=== PATIENT | female | born 1965 | race Caucasian/White ===

== ENCOUNTER → 2023-05-20 19:36 | Outpatient (REF) | payer OTHER, SELFPAY | LOC: MRI 3T 19:36 | PROVIDERS: ATTENDING PHYSICIAN Internal Medicine Hematology & Oncology; FAMILY PHYSICIAN Family Medicine | DX: C69.40 Malignant neoplasm of unspecified ciliary body (principal); R93.2 Abnormal findings on diagnostic imaging of liver and biliary tract; C78.7 Secondary malignant neoplasm of liver and intrahepatic bile duct | CPT/HCPCS: 70553; A9575 ==

== ENCOUNTER → 2023-05-23 13:00 | Outpatient (REF) | payer OTHER, SELFPAY | LOC: RADI 13:00 | PROVIDERS: ATTENDING PHYSICIAN Internal Medicine Hematology & Oncology | DX: C78.7 Secondary malignant neoplasm of liver and intrahepatic bile duct (principal); C69.90 Malignant neoplasm of unspecified site of unspecified eye ==

== ENCOUNTER 2023-07-02 11:29 | Observation (INO) | payer OTHER, SELFPAY ==
[2023-07-02] VITALS (20 sets, daily range): BP systolic 78–133; BP diastolic 59–96
[2023-07-02 07:37] LABS: % Basophils 1.6 % (0-2); % Eosinophils 2.9 % (0-6); % Immature Granulocytes 0.4 % (0-0.5); % Lymphocytes 29.4 % (20.5-51.1); % Monocytes 8.6 % (1.7-9.3); % Neutrophils 57.1 % (42.2-75.2); Absolute Basophils 0.1 10^3/uL (0-0.2); Absolute Eosinophils 0.2 10^3/uL (0-0.7); Absolute Lymphocytes 2.1 10^3/uL (1.2-3.4); Absolute Monocytes 0.6 10^3/uL (0.1-0.6); Hematocrit 40.3 % (37.0-47.0); Hemoglobin 13.4 g/dL (12.0-16.0); Mean Corp Hgb Conc. 33.3 g/dL (33.0-37.0); Mean Corpuscular Hgb 29.8 pg (27.0-31.0); Mean Corpuscular Volume 89.6 fL (81.0-99.0); Mean Platelet Volume 10.7 fL (7.4-10.4); Nucleated Red Blood Cells % 0 %; Platelet Count 319 10^3/uL (130-400); Red Cell Dist. Width 13.5 % (11.5-14.5)
[2023-07-02 08:05] LABS: ALT (SGPT) 16 U/L (0-35); AST (SGOT) 21 U/L (14-36); Albumin 4.5 g/dl (3.5-5.0); Alkaline Phosphatase 73 U/L (38-126); Blood Urea Nitrogen 12 mg/dl (7-17); Calcium 9.2 mg/dl (8.4-10.2); Carbon Dioxide 24 mmol/L (22-30); Chloride 109 mmol/L (98-107); Glucose 86 mg/dl (70-99); LDH 193 U/L (120-246); Potassium 3.9 mmol/L (3.5-5.1); Sodium 140 mmol/L (135-145); Total Bilirubin 0.8 mg/dl (0.2-1.3); Total Protein 7.3 g/dl (6.3-8.2); eGFR > 60.00
[2023-07-02 08:08] LABS: INR 1.01; PT 13.3 Sec (11.4-14.6)
[2023-07-02 08:09] LABS: APTT 30.1 Sec (23.4-35.0)
[2023-07-02] MEDS: SUBLIMAZE 25 MCG IV ×2 (11:57→15:03)
[2023-07-02] MEDS: NSS 1000 IV (12:30)
--- NOTE | 2023-07-02 17:49 | W.PN.UPDATE ---
Update Note
Progress Note Update
Doing well post CT guided percutaneous microwave ablation of hepatic mass. Earlier mild nausea, R abd, back pain all of which have improved. Taking PO. Dressing RUQ with minimal spotting. Anticipate d/c 07/02.
--- NOTE | 2023-07-02 18:04 | PTCARENOTE ---
P. received from PACU at 1700. Pt. arrived in bed. Pt. oriented to unit and nursing shift assessment. Pt. as given menu and call light. Will continue to monitor
[2023-07-02] MEDS: NSS IV (20:02)
[2023-07-02] MEDS: TYLENOL 650 MG PO (23:01)
[2023-07-03] MEDS: NSS IV (00:33)
[2023-07-03 03:45] VITALS: BP 138/73
[2023-07-03 05:32] LABS: Hematocrit 35.8 % (37.0-47.0); Mean Corp Hgb Conc. 33.5 g/dL (33.0-37.0); Mean Corpuscular Hgb 29.3 pg (27.0-31.0); Mean Corpuscular Volume 87.5 fL (81.0-99.0); Mean Platelet Volume 10.5 fL (7.4-10.4); Platelet Count 298 10^3/uL (130-400); Red Blood Cell Count 4.09 10^6/uL (4.20-5.40); Red Cell Dist. Width 13.4 % (11.5-14.5); White Blood Cell Count 11.2 10^3/uL (4.8-10.8)
[2023-07-03 05:59] LABS: ALT (SGPT) 130 U/L (0-35); AST (SGOT) 137 U/L (14-36); Albumin 3.8 g/dl (3.5-5.0); Alkaline Phosphatase 71 U/L (38-126); Blood Urea Nitrogen 11 mg/dl (7-17); Carbon Dioxide 27 mmol/L (22-30); Chloride 105 mmol/L (98-107); Glucose 106 mg/dl (70-99); Potassium 3.9 mmol/L (3.5-5.1); Sodium 139 mmol/L (135-145); Total Bilirubin 0.4 mg/dl (0.2-1.3); Total Protein 6.4 g/dl (6.3-8.2); eGFR > 60.00
[2023-07-03 07:00] VITALS: BP 118/56
[2023-07-03] MEDS: TAPAZOLE 10 MG PO (08:07)
--- NOTE | 2023-07-03 08:38 | W.PN.GENERIC ---
Assessment / Plan
-
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 She underwent MW ablation in IR yesterday. She has recovered well. She is voiding without difficulty and tolerating POs.
Can take Tylenol or Motrin for pain
Plan to discharge today
Recommend follow up with oncologist in 2-4 weeks
Recommend Follow up MRI in 4 months
Physician Progress Note
Subjective
58 yo female with metastatic melanoma of the left eye. She has a liver lesion and underwent MW ablation of this lesion yesterday in IR. She is feeling well today. She denies nausea, vomiting, abdominal pain, fever or chills. She is tolerating
POs. She is voiding spontasneously.
Objective
Vital Signs
Temp Pulse Resp BP Pulse Ox
97.9 F 73 18 118/56 98
07/03/23 07:00 07/03/23 07:00 07/03/23 07:00 07/03/23 07:00 07/03/23 07:00
Lab Results
07/03/23 05:20
07/03/23 05:20
58 yo female who is AA&O x 3 in NAD. Color is good. Skin is warm and dry. Color is good. Heart regular. Normal respiratory effort. Dressing removed. Site CDI. Abdomen is soft and nontender. No hematoma. No hepatomegaly. No calf tenderness
== END 2023-07-03 10:47 | disposition home or self-care (01) ==
LOC: 3 WEST ACU 11:29
PROVIDERS: Physician Assistant; ADMITTING PHYSICIAN Radiology Vascular & Interventional Radiology; FAMILY PHYSICIAN Family Medicine; REFERRING PHYSICIAN Internal Medicine Hematology & Oncology
DX: C78.7 Secondary malignant neoplasm of liver and intrahepatic bile duct (principal); Z85.820 Personal history of malignant melanoma of skin
CPT/HCPCS: 36415; 47382; 77013; 80053; 83615; 85025; 85027; 85610; 85730; G0378

== ENCOUNTER → 2023-08-25 12:47 | Outpatient (REF) | payer OTHER, SELFPAY | LOC: WDC 12:47 | PROVIDERS: ATTENDING PHYSICIAN Obstetrics & Gynecology Obstetrics; FAMILY PHYSICIAN Family Medicine | DX: Z12.31 Encounter for screening mammogram for malignant neoplasm of breast (principal) | CPT/HCPCS: 77063; 77067 ==

== ENCOUNTER → 2023-09-17 07:56 | Outpatient (REF) | payer OTHER, SELFPAY | LOC: PET 07:56 | PROVIDERS: ATTENDING PHYSICIAN Internal Medicine Hematology & Oncology | DX: C69.42 Malignant neoplasm of left ciliary body (principal) | CPT/HCPCS: 78816; A9552 ==

== ENCOUNTER → 2024-01-07 17:34 | Outpatient (REF) | payer OTHER, SELFPAY | LOC: MRI 3T 17:34 | PROVIDERS: ATTENDING PHYSICIAN Internal Medicine Hematology & Oncology; FAMILY PHYSICIAN Family Medicine | DX: C69.40 Malignant neoplasm of unspecified ciliary body (principal); C69.42 Malignant neoplasm of left ciliary body; R93.2 Abnormal findings on diagnostic imaging of liver and biliary tract; C78.7 Secondary malignant neoplasm of liver and intrahepatic bile duct; E03.2 Hypothyroidism due to medicaments and other exogenous substances | CPT/HCPCS: 74183; A9575 ==

== ENCOUNTER → 2024-02-23 16:40 | Outpatient (REF) | payer OTHER, SELFPAY | LOC: MRI 3T 16:40 | PROVIDERS: ATTENDING PHYSICIAN Internal Medicine Hematology & Oncology; FAMILY PHYSICIAN Family Medicine | DX: C69.32 Malignant neoplasm of left choroid (principal) | CPT/HCPCS: 74183; A9581 ==

== ENCOUNTER 2024-03-08 07:04 | Outpatient (REF) | payer OTHER, SELFPAY ==
[2024-03-08] VITALS (17 sets, daily range): BP systolic 74–145; BP diastolic 59–118
[2024-03-08 07:33] LABS: % Basophils 1.7 % (0-2); % Eosinophils 4.2 % (0-6); % Immature Granulocytes 0.5 % (0-0.5); % Lymphocytes 20.4 % (20.5-51.1); % Monocytes 10.5 % (1.7-9.3); % Neutrophils 62.7 % (42.2-75.2); Absolute Basophils 0.1 10^3/uL (0-0.2); Absolute Eosinophils 0.3 10^3/uL (0-0.7); Absolute Lymphocytes 1.3 10^3/uL (1.2-3.4); Absolute Monocytes 0.7 10^3/uL (0.1-0.6); Absolute Neutrophils 4.1 10^3/uL (1.4-6.5); Hematocrit 39.6 % (37.0-47.0); Hemoglobin 13.3 g/dL (12.0-16.0); Mean Corp Hgb Conc. 33.6 g/dL (33.0-37.0); Mean Corpuscular Volume 89.4 fL (81.0-99.0); Mean Platelet Volume 10.6 fL (7.4-10.4); Nucleated Red Blood Cells % 0 %; Platelet Count 311 10^3/uL (130-400); Red Blood Cell Count 4.43 10^6/uL (4.20-5.40); Red Cell Dist. Width 12.7 % (11.5-14.5); White Blood Cell Count 6.5 10^3/uL (4.8-10.8)
[2024-03-08 07:43] LABS: ALT (SGPT) 16 U/L (0-35); AST (SGOT) 20 U/L (14-36); Albumin 4.4 g/dl (3.5-5.0); Alkaline Phosphatase 80 U/L (38-126); Blood Urea Nitrogen 18 mg/dl (7-17); Calcium 9.1 mg/dl (8.4-10.2); Carbon Dioxide 26 mmol/L (22-30); Chloride 106 mmol/L (98-107); Direct Bilirubin 0.1 mg/dl (0.0-0.4); Estimated Creatinine Clearance 94 ml/min; Glucose 99 mg/dl (70-99); LDH 174 U/L (120-246); Potassium 3.8 mmol/L (3.5-5.1); Sodium 143 mmol/L (135-145); Total Bilirubin 0.6 mg/dl (0.2-1.3); Total Protein 7.3 g/dl (6.3-8.2); eGFR > 60.00
[2024-03-08 07:55] LABS: INR 1.07; PT 14.2 Sec (11.4-14.6)
[2024-03-08 07:56] LABS: APTT 31.5 Sec (23.4-35.0)
[2024-03-08] MEDS: ANCEF 10 IV (09:05)
[2024-03-08] MEDS: DILAUDID 0.5 MG IV ×3 (11:04→17:08)
[2024-03-08] MEDS: DILAUDID 0.25 MG IV (11:35)
[2024-03-08] MEDS: NSS 1000 IV (13:54)
[2024-03-08] MEDS: TYLENOL 650 MG PO (17:10)
--- NOTE | 2024-03-08 19:00 | W.PN.UPDATE ---
Update Note
Progress Note Update
Doing well post percutaneous microwave ablation of hepatic mass x2. Has appetite, has ambulated in hallway, pain at site controlled by rx. Dry dressing in place, no hematoma. Anticipate DC in AM.
[2024-03-08] MEDS: NSS IV (19:33)
[2024-03-08] MEDS: ROXICODONE 5 MG PO (22:00)
[2024-03-09] MEDS: TYLENOL 650 MG PO ×2 (00:11→09:49)
[2024-03-09 00:26] VITALS: BP 113/70
[2024-03-09] MEDS: ROXICODONE 5 MG PO (04:56)
[2024-03-09 07:55] VITALS: BP 121/83
--- NOTE | 2024-03-09 08:55 | W.PN.GENERIC ---
Assessment / Plan
-
This is a 59 yo female with metastatic melanoma and liver mets. She underwent MWA yesterday. She had some pain but is feeling better today.
Continue all home meds
Will prescribe oxycodone for pain
Stable for discharge today
Physician Progress Note
Subjective
Radha is a very pleasant 59-year-old woman with a past medical history significant for hypothyroidism and ocular melanoma with hepatic metastases. She previously underwent microwave ablation of a left hepatic lesion on July 02, 2023. She recovered
well from that procedure and was started on Keytruda July 30, 2023. On routine surveillance imaging, she was found progression of disease in the right lobe of her liver. She underwent microwave ablation yesterday. She reports the pain is
improving. She is tolerating POs.
She denies fever, chills, headache, chest pain, palpitations, shortness of breath, abdominal pain, nausea, vomiting, unintentional weight loss, dark tarry stool, hematemesis, jaundice, itching, rash or change in appetite.
PMH: Uveal melanoma, hypothyroidism, hepatic metastases.
PSH: Cataract surgery, appendectomy, oophorectomy, hysterectomy.
Social History: Patient is a former smoker. She rarely drinks alcohol.
Allergies: Sulfa and shellfish.
Current Medications: Synthroid 100 mcg, vitamin B complex, vitamin D3, and empower vitamins.
Objective
Vital Signs
Temp Pulse Resp BP Pulse Ox
97.9 F 72 17 121/83 95
03/09/24 07:55 03/09/24 07:55 03/09/24 07:55 03/09/24 07:55 03/09/24 07:55
Lab Results
03/08/24 07:25
03/08/24 07:25
Physical examination: This is a well-nourished, well-developed 59-year-old female who is awake, alert and oriented in no acute distress. Her color is good without jaundice. Her sclerae are anicteric. Her neck is supple. Her heart is regular. Her
lungs are CTA. Her abdomen is soft and nontender with bowel sounds. Her dresing is CDI. No hematoma. No calf pain or LE edema
--- NOTE | 2024-03-09 10:36 | CM ---
Patient seen at bedside. Outpatient status
IA completed
Lives at home alone in a 2 story townhouse, 2 steps to enter, flight to second floor
PLOF: Independent, ambulates without assistive device
Denies DME
Denies hh in the past, denies rehab in past
Denies housing/food/transportation/utilities insecurties
PCP: Jesus Marroquin
Pharmacy: [facility]
PLAN: Home, no needs
friend to transport home
== END 2024-03-09 11:05 | disposition home or self-care (01) ==
LOC: RADI 07:04
PROVIDERS: ATTENDING PHYSICIAN Radiology Vascular & Interventional Radiology; FAMILY PHYSICIAN Family Medicine; REFERRING PHYSICIAN Internal Medicine Hematology & Oncology
DX: C78.7 Secondary malignant neoplasm of liver and intrahepatic bile duct (principal); C69.42 Malignant neoplasm of left ciliary body; D68.8 Other specified coagulation defects
CPT/HCPCS: 36415; 47382; 77013; 80053; 82248; 83615; 85025; 85610; 85730

== ENCOUNTER → 2024-07-01 16:39 | Outpatient (REF) | payer OTHER, SELFPAY | LOC: MRI 3T 16:39 | PROVIDERS: ATTENDING PHYSICIAN Internal Medicine Hematology & Oncology; FAMILY PHYSICIAN Radiology Vascular & Interventional Radiology | DX: C69.40 Malignant neoplasm of unspecified ciliary body (principal); C69.42 Malignant neoplasm of left ciliary body; R93.2 Abnormal findings on diagnostic imaging of liver and biliary tract; C78.7 Secondary malignant neoplasm of liver and intrahepatic bile duct; E03.2 Hypothyroidism due to medicaments and other exogenous substances | CPT/HCPCS: 74183; A9581 ==

== ENCOUNTER 2024-07-12 10:28 | Emergency (ER) | payer OTHER, SELFPAY ==
[2024-07-12] VITALS (9 sets, daily range): BP systolic 95–109; BP diastolic 50–76; PULSE 88–95; BMI 27.6
[2024-07-12] MEDS: NSS 1000 IV (11:27)
[2024-07-12 11:33] LABS: % Basophils 0.9 % (0-2); % Eosinophils 3.1 % (0-6); % Immature Granulocytes 0.5 % (0-0.5); % Lymphocytes 14.1 % (20.5-51.1); % Monocytes 13.3 % (1.7-9.3); % Neutrophils 68.1 % (42.2-75.2); Absolute Basophils 0.1 10^3/uL (0-0.2); Absolute Eosinophils 0.3 10^3/uL (0-0.7); Absolute Immature Granulocytes 0.1 10^3/uL (0-0.05); Absolute Lymphocytes 1.5 10^3/uL (1.2-3.4); Absolute Monocytes 1.4 10^3/uL (0.1-0.6); Hematocrit 34.1 % (37.0-47.0); Hemoglobin 11.5 g/dL (12.0-16.0); Mean Corp Hgb Conc. 33.7 g/dL (33.0-37.0); Mean Corpuscular Hgb 28.1 pg (27.0-31.0); Mean Corpuscular Volume 83.4 fL (81.0-99.0); Mean Platelet Volume 9.6 fL (7.4-10.4); Nucleated Red Blood Cells % 0 %; Platelet Count 519 10^3/uL (130-400); Red Blood Cell Count 4.09 10^6/uL (4.20-5.40); White Blood Cell Count 10.3 10^3/uL (4.8-10.8)
--- NOTE | 2024-07-12 11:41 | ED.GENMED ---
History of Present Illness
General
Chief Complaint: Fainting/Passed Out
Time Seen by Provider: 07/12/24 10:47
History of Present Illness
History of Present Illness:
59-year-old female with history of metastatic melanoma of the left eye, with metastasis to the liver, on Opdivo presenting to the emergency department for syncopal episode. Patient was at work prior to arrival, was sitting at a table. She notes
she became lightheaded and passed out. No report of any head trauma. Witnessed by coworkers who noted she was out for several minutes, followed by period of confusion. No report of any shaking of extremities. Patient's blood pressure was noted
to be low on medics arrival, and blood sugar was in the 50s. Patient does note that she has had a poor appetite, only had a granola bar this morning, and overall has had poor nutrition in the past several days. She also reports longstanding
history of syncopal episodes. Most recently, in the past week, had 2 episodes where she felt like she was going to pass out, however did not do so. She also notes that she has had some generalized heaviness to her legs which has been going on
since May, is unsure if it is related to her immunotherapy. Last dose of her Opdivo was in June 26. Denies chest pain, difficulty breathing, abdominal pain, or additional acute medical complaints.
Past History
Past History
ED Past Medical History: Other (Endometriosis)
ED Past Surgical History: Gynecological (Hysterectomy)
Social History
Tobacco: Non-smoker
Alcohol: None
Drug: None
Living: with family
Employment: Employed
Phy Exam
Physical Exam
Physical Exam:
General: Well-appearing, nontoxic, dry mucous membranes
HEENT: protecting airway
Neck: appears supple
CV: Normal heart rate, regular rhythm
Resp: No accessory muscle use, no increased work of breathing, lungs clear to auscultation bilaterally
Abd: Soft and non-distended, no tenderness to palpation
Extremities: No deformities, no swelling, no erythema
Neuro: alert, no focal neurologic deficit.
: deferred
Rectal: deferred
Psych: Normal affect
Skin: Intact
Course
Orders/Labs/Results
Orders:
Orders
07/12/24 10:49
Electrocardiogram (*1) Urgent
Reason for Study: Syncope
EKG- Treatment ONCE
07/12/24 11:19
CT Head W/o Iv Contrast Urgent
Comment:
Reason For Exam: syncope, leg heaviness, cancer hx
0.9% Sodium Chloride 1000 ml [Nss] 1,000 ml IV BOLUS
07/12/24 11:23
Complete Blood Count/With Diff Urgent
Comprehensive Metabolic Panel Urgent
Magnesium Urgent
Troponin I Urgent
Abnormal Lab Results
07/12/24
11:23
RBC 4.09 L 10^6/uL
(4.20-5.40)
Hgb 11.5 L g/dL
(12.0-16.0)
Hct 34.1 L %
(37.0-47.0)
Plt Count 519 H 10^3/uL
(130-400)
Abs Immat Gran (auto) 0.1 H 10^3/uL
(0-0.05)
Absolute Neuts (auto) 7.0 H 10^3/uL
(1.4-6.5)
Absolute Monos (auto) 1.4 H 10^3/uL
(0.1-0.6)
Lymphocytes % 14.1 L %
(20.5-51.1)
Monocytes % 13.3 H %
(1.7-9.3)
Glucose 102 H mg/dl
(70-99)
Albumin 3.3 L g/dl
(3.5-5.0)
07/12/24 11:23
07/12/24 11:23
Vital Signs
Initial and Last Documented VS:
Initial Vital Signs
Pulse Resp BP Pulse Ox
84 16 95/50 75
07/12/24 10:35 07/12/24 10:35 07/12/24 10:35 07/12/24 10:35
Last Documented Vital Signs
Temp Pulse Resp BP Pulse Ox
98 F 89 24 95/50 97
07/12/24 10:42 07/12/24 10:45 07/12/24 10:45 07/12/24 10:42 07/12/24 10:45
MDM/Problems Addressed
MDM/Problems Addressed:
59-year-old female with history of malignant melanoma to left eye with metastasis to the liver presenting for syncopal episode. Vital signs on arrival are significant for low blood pressure.
On exam, patient is awake, alert, oriented. No physical signs of trauma. Suspect etiology of syncopal episode is vasovagal/volume depletion. Notes poor nutrition in the past few days, does have clinical signs of dehydration with dry mucous
membranes, hypotension. She is afebrile, nontoxic with lower suspicion for systemic process. No focal neurologic deficits on exam with lower suspicion for central neurologic process. EKG obtained, nonischemic, no arrhythmia, lower suspicion for
cardiac pathology, no prodromal chest pain or difficulty breathing. 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 Patient does note for the past several months she has had some heaviness to her
legs. Given malignant history, will also obtain CT brain imaging. However at this time suspect likely secondary to medication reaction from her Opdivo
13:20 -patient's labs are unremarkable. CT brain is unremarkable. On reassessment patient remains stable. Blood pressure is still low, however patient reports that this is chronic. Blood sugar is stable. Feel stable for discharge. Continue to
suspect vasovagal etiology of symptoms. Feel stable for discharge with outpatient follow-up with oncologist. Return precautions discussed. Encourage appropriate nutrition and hydration. Patient verbalized understanding
*EKG
Interpreted by ED Provider?: Yes
EKG Intrepretation Date: 07/12/24
EKG Intrepretation Time: 11:45
Interpretation: normal
Heart Rate: 86
Rate: normal
Rhythm: sinus
Randall: normal axis
Interval: normal interval
QRS Pattern: normal QRS
Ischemia: no ischemia
*Critical Care Note
Total Time (30-74mins, 75-104mins- exclusive of procedures): Not Applicable
ED Attending Note
-
Portions of this chart may have been created with voice recognition software.� Occasional wrong word or��sound alike� substitutions may have occurred due to the inherent limitations of voice recognition software.
Discharge Plan
Departure
Prescriptions:
No Action
methimazole 5 MG tablet
10 mg PO DAILY
cholecalciferol (vitamin D3) [Vitamin D3] 50 mcg (2,000 unit) Capsule
50 mcg PO DAILY
vitamin B complex
oxycodone 5 mg capsule
5 mg PO Q4H PRN (Reason: Pain) Qty: 14 0RF
oxycodone 5 mg tablet
5 mg PO Q4H PRN (Reason: Pain) Qty: 14 0RF
Referrals:
Jesus Marroquin Jr., DO [Family Provider] -
Interventions
Interventions:
*Risk Screen - Suicide Last Done: 07/12/24 10:45
*General Assessment Last Done: 07/12/24 10:45
*Neglect/Abuse Screening Last Done: 07/12/24 10:45
*ED- Fall Risk Assessment Last Done: 07/12/24 10:47
*ED COVID-19 Vaccine History Last Done: 07/12/24 10:46
ED- Cardiac Assessment Last Done: 07/12/24 11:30
ED- Neurological Assessment Last Done: 07/12/24 11:30
Discharge Date and Time
Print Language: UKRAINIAN
[2024-07-12 11:46] LABS: ALT (SGPT) 10 U/L (0-35); AST (SGOT) 16 U/L (14-36); Albumin 3.3 g/dl (3.5-5.0); Alkaline Phosphatase 104 U/L (38-126); Blood Urea Nitrogen 7 mg/dl (7-17); Calcium 9.4 mg/dl (8.4-10.2); Carbon Dioxide 29 mmol/L (22-30); Chloride 99 mmol/L (98-107); Estimated Creatinine Clearance 93 ml/min; Glucose 102 mg/dl (70-99); Magnesium 1.7 mg/dl (1.6-2.3); Potassium 3.8 mmol/L (3.5-5.1); Sodium 137 mmol/L (135-145); Total Bilirubin 0.5 mg/dl (0.2-1.3); Total Protein 6.3 g/dl (6.3-8.2); eGFR > 60.00
[2024-07-12 12:02] LABS: Troponin I < 0.012 ng/ml
[2024-07-12 13:10] LABS: Glucose - Point of Care 87 mg/dl (70-99)
== END 2024-07-12 14:25 | disposition home or self-care (01) ==
LOC: EMR 10:28
PROVIDERS: EMERGENCY PHYSICIAN Student in an Organized Health Care Education/Training Program; FAMILY PHYSICIAN Family Medicine
DX: R55 Syncope and collapse (principal); C78.7 Secondary malignant neoplasm of liver and intrahepatic bile duct; Z85.820 Personal history of malignant melanoma of skin; Z88.2 Allergy status to sulfonamides; Z91.012 Allergy to eggs; Z91.013 Allergy to seafood
CPT/HCPCS: 99284; 96360; 70450; 80053; 82962; 83735; 84484; 85025; 93005

== ENCOUNTER → 2024-08-27 12:28 | Outpatient (REF) | payer OTHER, SELFPAY | LOC: WDC 12:28 | PROVIDERS: ATTENDING PHYSICIAN Obstetrics & Gynecology Obstetrics; FAMILY PHYSICIAN Family Medicine | DX: Z12.31 Encounter for screening mammogram for malignant neoplasm of breast (principal) | CPT/HCPCS: 77063; 77067 ==

== ENCOUNTER → 2024-12-17 16:33 | Outpatient (REF) | payer OTHER, SELFPAY | LOC: MRI 3T 16:33 | PROVIDERS: ATTENDING PHYSICIAN Internal Medicine Hematology & Oncology; FAMILY PHYSICIAN Family Medicine; REFERRING PHYSICIAN Radiology Vascular & Interventional Radiology | DX: C69.40 Malignant neoplasm of unspecified ciliary body (principal); C69.42 Malignant neoplasm of left ciliary body; R93.2 Abnormal findings on diagnostic imaging of liver and biliary tract; C78.7 Secondary malignant neoplasm of liver and intrahepatic bile duct; E03.2 Hypothyroidism due to medicaments and other exogenous substances; Z92.26 Personal history of immune checkpoint inhibitor therapy; D75.839 Thrombocytosis, unspecified | CPT/HCPCS: 74183; A9581 ==

== ENCOUNTER 2025-01-16 18:11 | Inpatient (IN) | payer OTHER, SELFPAY ==
[2025-01-16] VITALS (10 sets, daily range): BP systolic 88–110; BP diastolic 50–74; BMI 26.8; BMI 28.4
--- NOTE | 2025-01-16 12:16 | ED.GENMED ---
History of Present Illness
<NIKKI Pollack - Last Filed: 01/16/25 17:15>
General
Chief Complaint: Fainting/Passed Out
Source: patient
Exam Limitations: none
Time Seen by Provider: 01/16/25 12:06
Nursing documentation reviewed up to this point in time: agreed with
History of Present Illness
History of Present Illness:
59 yr old female past medical history of left eye melanoma with metastasis to the liver presents for evaluation. Patient is followed at [place] (DR Joshi ) oncology ( she has seen DR Isidro in the past here as well ) and had a first dose of
targeted embolization chemo January 04. She reports on Friday 4 days ago she was told her potassium was high she had 2 episodes of syncope on Friday along with nausea and vomiting. She did hit her head at the time and also has had low back
pain from this. Today patient woke up and felt lightheaded called a friend and friend reports when she walked her to the bathroom, she reports patient arched her back and was grunting and not responding to her for about a minute.
Patient has had elevated white count for the past 10 days from prior labs.
Past History
<NIKKI Pollack - Last Filed: 01/16/25 17:15>
Past History
ED Past Medical History: Other (Endometriosis)
ED Past Surgical History: Gynecological (Hysterectomy)
Social History
Tobacco: Non-smoker
Alcohol: None
Drug: None
Living: with family
Employment: Employed
Phy Exam
<NIKKI Pollack - Last Filed: 01/16/25 17:15>
General Physical Exam
General Presentation: no apparent distress
General age: appears stated age
General Skin: warm and dry
General Habitus: normal
General Mental: alert
General Hydration: appears well hydrated
Cardiovascular Exam
Cardiovascular Exam: regular rate/rhythm, no murmur and normal peripheral pulses
Pulmonary Exam
Pulmonary Exam: lungs clear and no respiratory distress
Gastrointestinal Exam
Gastrointestinal Exam: non tender and soft
Neurological Exam
Neurological Exam: alert and oriented x3
Musculoskeletal Exam
Musculoskeletal Exam: full ROM and other (Tender throughout the lower lumbar region no ecchymosis to back)
Skin Exam
Skin Exam: normal color and warm/dry
Psychiatric Exam
Psychiatric Exam: normal mood/affect
Course
<NIKKI Pollack - Last Filed: 01/16/25 17:15>
Orders/Labs/Results
Orders:
Orders
01/16/25 12:10
Electrocardiogram (*1) Urgent
Reason for Study: Syncope
01/16/25 12:11
EKG- Treatment ONCE
01/16/25 12:12
Complete Blood Count/With Diff Urgent
01/16/25 12:39
0.9% Sodium Chloride 500 ml [Nss] 500 ml IV BOLUS
01/16/25 12:42
CT Head W/o Iv Contrast Urgent
Comment:
Reason For Exam: trauma possible seizure
01/16/25 12:43
CT Chest PE Study Urgent
Comment:
Reason For Exam: sob hx of liver ca
Lumbar Spine Complete, 4 View [CR Lumbar Spine Comp Min 4 Vw*] Urgent
Comment:
Reason For Exam: trauma
01/16/25 13:11
COVID-19 Antigen Urgent
Source: Nasal Swab
Comprehensive Metabolic Panel Urgent
Lactic Acid Q4H
Comment: CANCEL 2nd LACTIC ACID IF 1st LACTIC ACID IS LESS THAN 2
NT-proBNP Urgent
Comment: ADD ON
Influenza A+B Rapid Molecular Urgent
MARIANN Source: Nasal Swab
Specimen Description:
01/16/25 13:12
UA Reflex to Culture [Urinalysis Reflex To Culture] Urgent
Date Specimen was Collected: 01/16/25
Time Specimen was Collected: 13:01
Urine Microscopic Reflex Cult Urgent
Blood Culture Q30M
MARIANN Source: Blood/Venous
Specimen Description:
Blood Culture Q30M
MARIANN Source: Blood/Venous
Specimen Description:
01/16/25 13:37
Ketorolac [Toradol] 15 mg .ROUTE .STK-MED ONE
01/16/25 13:39
Ketorolac [Toradol] 15 mg IV NOW STA
01/16/25 14:20
Cefepime HCl [Maxipime] 2,000 mg IV NOW STA
01/16/25 14:30
Sterile Water [Sterile Water For Injection] 10 ml .ROUTE .STK-MED ONE
01/16/25 15:06
Vancomycin [Vancocin] 2,000 mg 0.9% Sodium Chloride 500 ml [Nss] 500 ml IV NOW
01/16/25 16:05
Add On- LAB Urgent
Tests Added?: cardiac bnp
01/16/25 16:06
Furosemide [Lasix] 40 mg IV NOW STA
01/16/25 17:00
Lactic Acid Q4H
Comment: CANCEL 2nd LACTIC ACID IF 1st LACTIC ACID IS LESS THAN 2
Abnormal Lab Results
01/16/25 01/16/25 01/16/25
12:12 13:11 13:12
WBC 25.7 H 10^3/uL
(4.8-10.8)
RBC 4.04 L 10^6/uL
(4.20-5.40)
Hgb 10.6 L g/dL
(12.0-16.0)
Hct 32.6 L %
(37.0-47.0)
MCV 80.7 L fL
(81.0-99.0)
MCH 26.2 L pg
(27.0-31.0)
MCHC 32.5 L g/dL
(33.0-37.0)
Plt Count 501 H 10^3/uL
(130-400)
Abs Immat Gran (auto) 1.0 H 10^3/uL
(0-0.05)
Absolute Neuts (auto) 20.4 H 10^3/uL
(1.4-6.5)
Absolute Monos (auto) 2.0 H 10^3/uL
(0.1-0.6)
Immature Gran % 3.9 H %
(0-0.5)
Neutrophils % 79.3 H %
(42.2-75.2)
Lymphocytes % 8.3 L %
(20.5-51.1)
Sodium 128 L mmol/L
(135-145)
Creatinine 0.5 L mg/dL
(0.6-1.0)
Calcium 8.2 L mg/dl
(8.4-10.2)
AST 48 H U/L
(14-36)
ALT 46 H U/L
(0-35)
Alkaline Phosphatase 303 H U/L
(38-126)
Albumin 3.1 L g/dl
(3.5-5.0)
Urine Bacteria (Reflex) Few A
(Negative)
Urine Albumin (Reflex) 1+ A
(Neg - Trace)
01/16/25 12:12
01/16/25 13:11
Vital Signs
Initial and Last Documented VS:
Initial Vital Signs
Temp Pulse Resp BP Pulse Ox
100.4 F H 92 18 102/69 91
01/16/25 12:00 01/16/25 12:00 01/16/25 12:00 01/16/25 12:00 01/16/25 12:00
Last Documented Vital Signs
Temp Pulse Resp BP Pulse Ox
98.6 F 92 20 89/57 92
01/16/25 16:38 01/16/25 16:15 01/16/25 16:15 01/16/25 16:34 01/16/25 16:15
<Ga Verde MD - Last Filed: 01/16/25 13:39>
Orders/Labs/Results
Orders:
Orders
01/16/25 12:10
Electrocardiogram (*1) Urgent
Reason for Study: Syncope
01/16/25 12:11
EKG- Treatment ONCE
01/16/25 12:12
Complete Blood Count/With Diff Urgent
01/16/25 12:39
0.9% Sodium Chloride 500 ml [Nss] 500 ml IV BOLUS
01/16/25 12:42
CT Head W/o Iv Contrast Urgent
Comment:
Reason For Exam: trauma possible seizure
01/16/25 12:43
CT Chest PE Study Urgent
Comment:
Reason For Exam: sob hx of liver ca
Lumbar Spine Complete, 4 View [CR Lumbar Spine Comp Min 4 Vw*] Urgent
Comment:
Reason For Exam: trauma
01/16/25 13:11
COVID-19 Antigen Urgent
Source: Nasal Swab
Comprehensive Metabolic Panel Urgent
Lactic Acid Q4H
Comment: CANCEL 2nd LACTIC ACID IF 1st LACTIC ACID IS LESS THAN 2
NT-proBNP Urgent
Comment: ADD ON
Influenza A+B Rapid Molecular Urgent
MARIANN Source: Nasal Swab
Specimen Description:
01/16/25 13:12
UA Reflex to Culture [Urinalysis Reflex To Culture] Urgent
Date Specimen was Collected: 01/16/25
Time Specimen was Collected: 13:01
Urine Microscopic Reflex Cult Urgent
Blood Culture Q30M
MARIANN Source: Blood/Venous
Specimen Description:
Blood Culture Q30M
MARIANN Source: Blood/Venous
Specimen Description:
01/16/25 13:37
Ketorolac [Toradol] 15 mg .ROUTE .STK-MED ONE
01/16/25 13:39
Ketorolac [Toradol] 15 mg IV NOW STA
01/16/25 14:20
Cefepime HCl [Maxipime] 2,000 mg IV NOW STA
01/16/25 14:30
Sterile Water [Sterile Water For Injection] 10 ml .ROUTE .STK-MED ONE
01/16/25 15:06
Vancomycin [Vancocin] 2,000 mg 0.9% Sodium Chloride 500 ml [Nss] 500 ml IV NOW
01/16/25 16:05
Add On- LAB Urgent
Tests Added?: cardiac bnp
01/16/25 16:06
Furosemide [Lasix] 40 mg IV NOW STA
01/16/25 17:00
Lactic Acid Q4H
Comment: CANCEL 2nd LACTIC ACID IF 1st LACTIC ACID IS LESS THAN 2
Abnormal Lab Results
01/16/25 01/16/25 01/16/25
12:12 13:11 13:12
WBC 25.7 H 10^3/uL
(4.8-10.8)
RBC 4.04 L 10^6/uL
(4.20-5.40)
Hgb 10.6 L g/dL
(12.0-16.0)
Hct 32.6 L %
(37.0-47.0)
MCV 80.7 L fL
(81.0-99.0)
MCH 26.2 L pg
(27.0-31.0)
MCHC 32.5 L g/dL
(33.0-37.0)
Plt Count 501 H 10^3/uL
(130-400)
Abs Immat Gran (auto) 1.0 H 10^3/uL
(0-0.05)
Absolute Neuts (auto) 20.4 H 10^3/uL
(1.4-6.5)
Absolute Monos (auto) 2.0 H 10^3/uL
(0.1-0.6)
Immature Gran % 3.9 H %
(0-0.5)
Neutrophils % 79.3 H %
(42.2-75.2)
Lymphocytes % 8.3 L %
(20.5-51.1)
Sodium 128 L mmol/L
(135-145)
Creatinine 0.5 L mg/dL
(0.6-1.0)
Calcium 8.2 L mg/dl
(8.4-10.2)
AST 48 H U/L
(14-36)
ALT 46 H U/L
(0-35)
Alkaline Phosphatase 303 H U/L
(38-126)
Albumin 3.1 L g/dl
(3.5-5.0)
Urine Bacteria (Reflex) Few A
(Negative)
Urine Albumin (Reflex) 1+ A
(Neg - Trace)
01/16/25 12:12
01/16/25 13:11
Vital Signs
Initial and Last Documented VS:
Initial Vital Signs
Temp Pulse Resp BP Pulse Ox
100.4 F H 92 18 102/69 91
01/16/25 12:00 01/16/25 12:00 01/16/25 12:00 01/16/25 12:00 01/16/25 12:00
Last Documented Vital Signs
Temp Pulse Resp BP Pulse Ox
98.6 F 92 20 89/57 92
01/16/25 16:38 01/16/25 16:15 01/16/25 16:15 01/16/25 16:34 01/16/25 16:15
<NIKKI Pollack - Last Filed: 01/16/25 17:15>
MDM/Problems Addressed
MDM/Problems Addressed:
Patient is a 59-year-old female with metastatic liver cancer presents for evaluation. Patient had a questionable syncopal episode today. She also had 2 episodes on Friday. After these episodes she has had low back pain. She denies any
headache. She presented febrile at 100.4 negative COVID
No recent URI symptoms cough. Patient presents awake alert mildly hypoxic however not short of breath here. No prior history of PE DVT. With recent fall syncope head CAT scan done and negative for acute hemorrhage. Lumbar x-ray shows endplate
compression fracture of L3 and CAT scan of the chest done as well. CAT scan negative for PE does show cardiac genic pulmonary edema with acute superior and inferior endplate fractures of T10 and T3. proBNP added. Other labs reviewed shows an
elevated white count of 25,000 however patient has had elevated white count for the past 10 days as high as 23,000 on outpatient labs. She does present with a low-grade fever here however no acute source of infection at this time. Hemoglobin
stable at 10.6. Sodium low at 128 normal creatinine and normal lactic 0.9. Urine negative for infection. Case discussed with ED physician who evaluated patient will require admission. Patient order antibiotics for fever/elevated wbc. and lasix
Chronic conditions affecting care:
metastatic liver cancer
<NIKKI Pollack - Last Filed: 01/16/25 17:15>
*Radiology
Radiology exam reviewed: radiology read reviewed
*Pulse Oximetry
SaO2: 91
Oxygen Mode of Delivery: Room air
Patient hypoxic: yes
*EKG
Interpreted by ED Provider?: Yes
Heart Rate: 76
Rate: normal
Rhythm: sinus
*Critical Care Note
Total Time (30-74mins, 75-104mins- exclusive of procedures): Not Applicable
ED Attending Note
<NIKKI Pollack - Last Filed: 01/16/25 17:15>
-
Portions of this chart may have been created with voice recognition software.� Occasional wrong word or��sound alike� substitutions may have occurred due to the inherent limitations of voice recognition software.
<Ga Verde MD - Last Filed: 01/16/25 13:39>
ED Attending Note
Patient seen and examined by attending physician: Yes
I performed the substantive portion of visit, reviewed & personally made and approve the management plan that is documented in note by myself or IRISH.: Yes
ED Attending Note:
59-year-old female being treated for metastatic melanoma. Currently receiving intra hepatic chemo. Intrahepatic chemotherapy was about 10 days ago. Had lab work this week that showed a high potassium. [place] weak the last 2 days. Had a syncopal
episode earlier today. Currently denies chest pain or shortness of breath. General fatigue and weakness.
On exam patient is nontoxic. Normocephalic atraumatic. Lungs are clear and equal. No respiratory distress. Borderline pulse ox however. Heart regular rate and rhythm. Abdomen benign. No chest wall tenderness. She is nonfocal.
Previous labs were reviewed. She has been running a significant leukocytosis. Was 23,000 about 10 days ago and last week. Now up to 25,000. Potassium pending. CT PE study pending. Sepsis workup pending.
Discharge Plan
Departure
Patient Disposition: Admit
Date of Disposition: 01/16/25
Time of Disposition: 16:23
Admit to: Telemetry
Admit to doctor: hospitalist
Presentation/result/management discussed w/ accepting MD/DO: Hospitalist
Patient with high blood pressure during this ER visit?: No
Condition: Fair
Covid-19: Not Applicable
Discharge Problem:
Fever, Pulmonary edema, fractures of vertebrae, Acute hyponatremia, Hypoxia
Prescriptions:
No Action
methimazole 5 MG tablet
10 mg PO DAILY
cholecalciferol (vitamin D3) [Vitamin D3] 50 mcg (2,000 unit) Capsule
50 mcg PO DAILY
vitamin B complex
oxycodone 5 mg capsule
5 mg PO Q4H PRN (Reason: Pain) Qty: 14 0RF
oxycodone 5 mg tablet
5 mg PO Q4H PRN (Reason: Pain) Qty: 14 0RF
Referrals:
Jesus Marroquin Jr., DO [Family Provider, Internal Medicine]
Interventions
Interventions:
*Risk Screen - Suicide Last Done: 01/16/25 12:00
*General Assessment Last Done: 01/16/25 12:00
*Neglect/Abuse Screening Last Done: 01/16/25 12:00
ED- Cardiac Assessment Last Done: 01/16/25 12:33
ED- Neurological Assessment Last Done: 01/16/25 12:33
Discharge Date and Time
Print Language: ANGUILLAN
[2025-01-16] MEDS: NSS 500 IV ×2 (12:39→18:07)
[2025-01-16 12:40] LABS: Hematocrit 32.6 % (37.0-47.0); Hemoglobin 10.6 g/dL (12.0-16.0); Mean Corp Hgb Conc. 32.5 g/dL (33.0-37.0); Mean Corpuscular Volume 80.7 fL (81.0-99.0); Platelet Count 501 10^3/uL (130-400); Red Cell Dist. Width 14.3 % (11.5-14.5)
[2025-01-16 12:57] LABS: Nucleated Red Blood Cells % 0 %
[2025-01-16 13:43] LABS: ALT (SGPT) 46 U/L (0-35); AST (SGOT) 48 U/L (14-36); Albumin 3.1 g/dl (3.5-5.0); Alkaline Phosphatase 303 U/L (38-126); Blood Urea Nitrogen 13 mg/dl (7-17); Calcium 8.2 mg/dl (8.4-10.2); Carbon Dioxide 26 mmol/L (22-30); Chloride 98 mmol/L (98-107); Estimated Creatinine Clearance 93 ml/min; Glucose 78 mg/dl (70-99); Potassium 4.5 mmol/L (3.5-5.1); Sodium 128 mmol/L (135-145); Total Protein 6.3 g/dl (6.3-8.2); eGFR > 60.00
[2025-01-16] MEDS: TORADOL 15 MG IV (13:47)
[2025-01-16 13:57] LABS: COVID-19 Antigen Negative (Negative)
[2025-01-16 14:16] LABS: Urine Character Clear (Clear)
[2025-01-16 14:34] LABS: Urine Squamous Cell 0-2 /LPF (Few)
[2025-01-16 14:35] LABS: Urine Red Blood Cell 0-2 /HPF (0-2); Urine White Cell 0-2 /HPF (0-5)
[2025-01-16] MEDS: MAXIPIME 2000 MG IV (15:06)
[2025-01-16] MEDS: VANCOCIN 540 MG IV (15:23)
--- NOTE | 2025-01-16 16:28 | HPS.HSE ---
Addendum entered and electronically signed by Nacho Chiu MD 01/16/25 17:47:
This is an addendum to H&P written by Isabelle Lundberg on 01/16/2025. �Patient seen and examined independently with TAPE FASTENER MACHINE OPERATOR.
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
presenting with fatigue and syncopal episode 4 days ago hurting her back. �Had fever 100.1. �Another syncopal episode today.
Had leukocytosis and potassium of 6 four days ago.
Blood pressure of 89/57. �Hypoxic to 91%. �Temperature 100.4. �Stable anemia of 10.6. �Sodium of 128. �Mild transaminitis. �COVID and flu negative. �Urinalysis unremarkable. �Cardiac BNP of 150.
CT head shows no evidence of acute intracranial hemorrhage. �Mild Chiari I malformation. �CT chest shows mild interstitial and alveolar cardiogenic pulmonary edema. �Thick bands of subsegmental atelectasis in the right middle and lower lobes. �Mild
cardiomegaly. �Extensive hepatic metastatic disease. �Acute superior and inferior endplate fractures of T10, mild superior endplate fracture of T3.
Patient with clinical sepsis and mild hypoxemia likely secondary to pneumonia in the setting of immunocompromise status from metastatic left eye cancer. �No findings such as vomiting or abdominal pain to suggest chemo embolization syndrome.
IV fluids. �Check blood cultures. �Vancomycin/cefepime.
Original Note:
Family Physician
-
Family Physician: Jesus Marroquin Jr.
Chief Complaint
-
Fatigue, syncope, lower back pain, fever
History of Present Illness
59-year-old female who states on Friday 4 days ago she had fatigue, syncope along with nausea and vomiting. She reports she did hit her head and low back at that time she was told she had elevated potassium of 6 however was not referred to the
ER was not given any medication current potassium in ER is 4.8 today she woke up feeling lightheaded and called her friend. Her friend reported to the ER she walked her to the bathroom where she describes the patient arching her back and grunting
and not responding for approximately 1 minute. She was also noted to have elevated WBC count for the past 10 days of 23,000. The patient reports low-grade temp 100.1 2 days ago, fatigue, back pain. Patient denies sore throat, headache, cough,
shortness of breath, chest pain, palpitations, abdominal pain, nausea, vomiting, diarrhea, urinary symptoms. The patient with history of metastatic melanoma of the left eye 2020 with mets to liver 2023 on prior Yervoy/Opdivo, then Opdivo from July
to November of 2024, chemoembolization liver 01/04/2025, chronic transaminitis due to hepatic metastases, microcytic anemia, vasovagal syncope
Medical History
Past Medical History
Past Medical History: Reports Other
Additional Past Medical History:
history of metastatic melanoma of the left eye 2020 with mets to liver 2023 on prior Yervoy/Opdivo,
then Opdivo from July to November of 2024
chemoembolization liver 01/04/2025
chronic transaminitis due to hepatic metastases
microcytic anemia
vasovagal syncope
Past Surgical History: Reports Other
Additional Past Surgical History:
Hysterectomy
Oophorectomy
Chemoembolization 01/04/2025
Social History
Tobacco: Non-smoker
Alcohol: None
Drug: None
Family History
Family History: Other (Sister history of melanoma, brother history of anal adenocarcinoma)
Allergies / Home Medications
Allergies reflects when Allergies were last updated in [facility].
Home Medications with original date entered in [facility]
Allergy/Medication List:
Allergies
Allergy/AdvReac Type Severity Reaction Status Date / Time
shellfish derived Allergy Unknown Verified 07/12/24 10:46
Sulfa (Sulfonamide Allergy Unknown Verified 07/12/24 10:46
Antibiotics)
Home Medications
Immpower Er Ahcc 2 cap PO DAILY 01/16/25
acetaminophen 650 mg tablet,extended release 1,300 mg PO DAILYPRN PRN mild pain 01/16/25
allopurinol 300 mg tablet 300 mg PO DAILY 01/16/25
duloxetine 40 mg capsule,delayed release 40 mg PO DAILY 01/16/25
levothyroxine 125 mcg tablet 125 mcg PO DAILY 01/16/25
peg 400-propylene glycol 0.4 %-0.3 % eye drops (Systane Ultra) 1 drp ophthalmic (eye) DAILY PRN dry eyes 01/16/25
Review of Systems
-
History Source: Patient and Family (Friend at bedside)
A 12 point ROS was completed and negative except as noted: Yes
Constitutional: Reports Fever, Fatigue and Chills
EENT: Denies Sore Throat
Respiratory: Denies Cough or Trouble Breathing
Cardiac: Denies Chest Pain, Diaphoresis, Palpitations or Syncope
Abdomen/GI: Denies Abdominal Pain, Nausea, Vomiting or Diarrhea
: Denies Dysuria, Frequency, Flank Pain or Incontinence
Musculoskeletal: Reports Other (Thoracic back pain from fall); Denies Joint Pain or Edema
Skin: Denies Itching or Rash
Neurological: Reports Dizzy and Weakness; Denies Headache
Endocrine: Reports No Symptoms
Hematologic/Lymphatic: Reports No Symptoms
Psych: Reports Calm
Physical Exam
Vital Signs
Vital Signs
Temp Pulse Resp BP Pulse Ox
100.4 F H 85 16 100/62 92
01/16/25 12:00 01/16/25 15:20 01/16/25 15:20 01/16/25 15:20 01/16/25 15:20
Physical Exam
General: Comfortable, Conversant and Fever; No Chills
HEENT: NormoCephalic, Anicteric, Moist mucous membranes, Atraumatic, PERRLA, Burr Conjunctivae and Oxygen (2 L nasal cannula)
Respiratory: Clear; No Wheezes, Rales or Rhonchi
Cardiac: S1/S2 and Regular Rhythm; No Murmur, Rub, Gallop or Peripheral Edema
Breast: Deferred by me
GI: Soft, Non Tender, Non Distended, Normal Bowel Sounds and No Hepatosplenomegaly
Rectal: Deferred by Provider
Genito-urinary: Deferred by me
Musculoskeletal: No Clubbing, No Cyanosis and No Edema
Skin: Warm, Dry and Other (Resolving ecchymosis right lower groin status post chemoembolization site 2 weeks ago)
Neuro: AO x 3, No Motor Deficits, Nonfocal/grossly intact, Cranial Nerves Intact and No Sensory Deficits; No Slurred Speech, Facial Droop, Tremors or Sedated
Psych: Calm
Laboratory Results
-
01/16/25 12:12
01/16/25 13:11
Laboratory Results
Lactic Acid 0.9 mmol/L (0.7-2.0) 01/16/25 13:11
Total Bilirubin 0.8 mg/dl (0.2-1.3) 01/16/25 13:11
AST 48 U/L (14-36) H 01/16/25 13:11
ALT 46 U/L (0-35) H 01/16/25 13:11
Alkaline Phosphatase 303 U/L (38-126) H 01/16/25 13:11
Impression/Plan
-
Impression/plan:
Admit to IMU
# Septic shock of unclear etiology possibly right middle lobe and lower lobe pneumonia
#Acute hypoxic respiratory insufficiency possibly secondary to right middle and lower lobe PNA
WBC 25.7 with left shift, HR 92, 100.4 F, 88/50
COVID/influenza/UA negative
- IV cefepime, IV vancomycin
- Follow blood cultures x 2, lactic acid
- IV NSS 500 cc given in ER , 1500 cc NSS bolus
-Patient may require pressors if no improvement after fluid bolus above
- Continue IV NSS 100 cc an hour
- Tylenol as needed
CT PE study:1. Mild interstitial and alveolar cardiogenic pulmonary edema.
2. Thick bands of subsegmental atelectasis in the right middle and lower lobes.
3. Mild cardiomegaly.
4. Small sub-6 mm solid pulmonary nodules (possibly small pulmonary metastases).
5. EXTENSIVE HEPATIC METASTATIC DISEASE with a large conglomerate of calcified metastatic disease in the right
lobe and noncalcified metastases in the left lobe.
6. 3 cm nayana hepatis lymph node.
7. Acute superior and inferior endplate fractures of T10.
8. Mild superior endplate fracture of T3.
#Syncope likely secondary to Orthostatic hypotension
#History of vasovagal syncope June 2024
BP 88/50 MAP 62, post 500 cc IV NSS in ER
Follow orthostatic vitals
CT head: No acute intracranial hemorrhage or infarct
mild Chiari I malformation
EKG: NSR 76 bpm, QTc 416 MS otherwise normal
#Hyponatremia
NA 128
Patient was given 500 cc IV NSS in ER
#Fall with acute endplate fracture T10, endplate fracture T3
- Lidoderm patch
- Oxycodone as needed
# Metastatic melanoma of the left eye 2020 with mets to liver 2023
on prior Yervoy/Opdivo, then Opdivo from July to November of 2024
- Recent chemoembolization at [facility] on January [address] Joshi at [facility]
- Patient follows with [facility] Dr. Isidro also
#Chronic transaminitis due to hepatic metastasis
Follow CMP
#Hypothyroidism
Continue levothyroxine 125 mcg daily
#Depression
Continue duloxetine 40 mg daily
#Dry eye syndrome
Continue artificial tears
#Microcytic anemia
Hgb 10.6, MCV 80.7 baseline was 11.5 in June
DVT prophylaxis
Subcu Lovenox
Full code
--- NOTE | 2025-01-16 17:51 | EDCM ---
CM reviewed chart and met with pt bedside in ED. Lives alone in multistory town home, [address], has first floor half bath, full flight to second floor bedroom and full bath.
Independent in ADLs, personal care and ambulation at baseline. No assistive devices.
Hx metastatic melanoma of the eye, liver mets. Follows with Dr Isidro at [facility] and also at [facility].
Confirms prescription coverage.
No hx VN or SNF.
PCP: Jesus Marroquin
Pharmacy: [facility] at [facility]
Anticipate discharge home, CM will continue to follow for all discharge planning needs.
[2025-01-16] MEDS: NSS 1000 IV (18:07)
--- NOTE | 2025-01-16 18:52 | PHA.VAN.IN ---
Assessment
- Assessment
Renal Function: Appears similar to baseline
Maximum Temperature: 100.4F
Minimum Temperature: 98.6F
Concomitant Antimicrobials: Cefepime
AUC Dosing Plan
- Dosing Variables
Dosing Weight (kg): 77.5
Dosing CrCl (ml/min): 93
Vd coefficient (L/kg): 0.7
- Empiric Dosing
Initial / Loading Dose: 2000MG
Maintenance Regimen: 1000MG Q12H
Estimated AUC (mcg*h/mL): 470
Estimated Peak (mcg*h/mL): 29.5
Estimated Trough (mcg/ml): 12
Estimated Half Life (H): 8.5
- Monitoring
No levels ordered at this time: Awaiting steady state
Pharmacokinetics Vancomycin I
- -
Patient Age: 59
Patient Sex: Female
Vancomycin Day #: 1
Indication: Pulmonary/Respiratory
Requesting Provider: Toño
Pertinent Antimicrobial Allergies:
Sulfa - unknown allergy
Height / Weight:
Height 5 ft 5 in
Actual Weight 77.5 kg
Pertinent Past Medical History: metastatic melanoma
- Vital Signs / Lab Results
Temp Pulse Resp BP Pulse Ox
99.2 F 95 21 102/64 92
01/16/25 18:49 01/16/25 17:30 01/16/25 17:30 01/16/25 17:00 01/16/25 16:15
Lab Results - Hematology
01/16/25
12:12
WBC 25.7 H
Lab Results - Chemistry
01/16/25 01/16/25
12:12 13:11
BUN Cancelled 13
Creatinine Cancelled 0.5 L
Estimated Creat Clear Cancelled 93
Albumin Cancelled 3.1 L
01/16/25 01/16/25
13:11 17:00
Lactic Acid 0.9 Cancelled
Lab Results - Urine
01/16/25
13:12
Urine Nitrite (Reflex) Negative
Leukocyte Esterase Rfl Negative
Urine WBC (Reflex) 0-2
Ur Squamous Epith Cells 0-2
Urine Bacteria (Reflex) Few A
Microbiology Results
01/16/25 13:11 Influenza Types A & B (SLIM) - Final
Nasal Swab Negative for Influenza A & B, NAAT
Negative results must be combined with clinical observations
and patient history.
Nucleic Acid Amplification test (NAAT)performed on the
[employer] platform.
[2025-01-16] MEDS: LOVENOX SC (19:38)
[2025-01-16] MEDS: TORADOL 10 MG IV (20:53)
[2025-01-16] MEDS: MAXIPIME 1000 MG IV (21:19)
[2025-01-16] MEDS: LIDOCAINE 4% PATCH 1 PATCH TOPICAL (21:19)
[2025-01-16] MEDS: STERILE WATER FOR INJECTION 10 ML IV (21:19)
--- NOTE | 2025-01-16 21:37 | PTCARENOTE ---
Received pt at change of shift. New admission at change of shift. AAOx3. Back pain 7-11/21; prefers to not take narcotics. Requested Toradol whradha she received in the ED and helped her pain. Notified GLUE WHEEL OPERATOR. 1x dose of Toradol and lidocaine patch
ordered and administered Pt also unable to void. Attemped on BSC multiple times. Bladder scan showed 418 ml. Notified GLUE WHEEL OPERATOR again. Straight cath order obtained. Straight cath pt for 450 ml. Resting in bed with call hoyt in reach.
[2025-01-17] VITALS (18 sets, daily range): BP systolic 91–119; BP diastolic 51–80; PULSE 104; O2SAT 88
[2025-01-17] MEDS: MAXIPIME 1000 MG IV ×4 (03:56→21:00)
[2025-01-17] MEDS: STERILE WATER FOR INJECTION 10 ML IV ×4 (03:56→21:00)
[2025-01-17 04:45] LABS: Hematocrit 30.6 % (37.0-47.0); Hemoglobin 10.1 g/dL (12.0-16.0); Mean Corp Hgb Conc. 33.0 g/dL (33.0-37.0); Mean Corpuscular Volume 83.6 fL (81.0-99.0); Nucleated Red Blood Cells % 0 %; Platelet Count 435 10^3/uL (130-400); Red Cell Dist. Width 14.3 % (11.5-14.5)
[2025-01-17 05:01] LABS: ALT (SGPT) 35 U/L (0-35); AST (SGOT) 36 U/L (14-36); Albumin 2.7 g/dl (3.5-5.0); Alkaline Phosphatase 281 U/L (38-126); Blood Urea Nitrogen 10 mg/dl (7-17); Calcium 7.8 mg/dl (8.4-10.2); Carbon Dioxide 26 mmol/L (22-30); Chloride 102 mmol/L (98-107); Estimated Creatinine Clearance 106 ml/min; Glucose 84 mg/dl (70-99); Potassium 4.4 mmol/L (3.5-5.1); Sodium 133 mmol/L (135-145); Total Protein 5.6 g/dl (6.3-8.2); eGFR > 60.00
[2025-01-17] MEDS: VANCOCIN 200 IV ×2 (05:01→17:35)
[2025-01-17] MEDS: SYNTHROID 125 MCG PO (05:01)
[2025-01-17] MEDS: ROXICODONE 5 MG PO ×4 (05:01→23:08)
[2025-01-17] MEDS: CYMBALTA DELAYED RELEASE 40 MG PO (09:16)
--- NOTE | 2025-01-17 09:29 | PHA.VAN.FU ---
Vancomycin Assessment / Plan
- Assessment
Renal Function: Stable
WBC's are: Trending Down
In the past 24 hrs, patient has been: Febrile (TMAX 100.4 F)
Concomitant Antimicrobials: CEFEPIME
- Dosing Plan
Continue: VANCO 1000MG Q12H
- Monitoring Plan
No level(s) ordered at this time: CONSIDER LEVELS AT STEADY STATE
- Follow Up
Pharmacy will continue to follow.
Vancomycin Follow UP
- -
Patient Age: 59
Patient Sex: Female
Vancomycin Day #: 2
Indication: Pulmonary/Respiratory
Requesting Provider: Toño
Pertinent Antimicrobial Allergies:
Sulfa - unknown allergy
Height / Weight:
Height 5 ft 5 in
Actual Weight 77.5 kg
Pertinent Past Medical History: metastatic melanoma
- Vital Signs / Lab Results
Temp Pulse Resp BP Pulse Ox
99.5 F 102 25 119/74 88
01/17/25 07:00 01/17/25 06:00 01/17/25 06:00 01/17/25 04:00 01/17/25 06:00
Lab Results - Hematology
01/16/25 01/17/25
12:12 04:16
WBC 25.7 H 16.4 H
Lab Results - Chemistry
01/16/25 01/16/25 01/17/25
12:12 13:11 04:16
BUN Cancelled 13 10
Creatinine Cancelled 0.5 L 0.6
Estimated Creat Clear Cancelled 93 106
Albumin Cancelled 3.1 L 2.7 L
01/16/25 01/16/25
13:11 17:00
Lactic Acid 0.9 Cancelled
Lab Results - Urine
01/16/25
13:12
Urine Nitrite (Reflex) Negative
Leukocyte Esterase Rfl Negative
Ur Squamous Epith Cells 0-2
Microbiology Results
01/16/25 13:11 Influenza Types A & B (SLIM) - Final
Nasal Swab Negative for Influenza A & B, NAAT
Negative results must be combined with clinical observations
and patient history.
Nucleic Acid Amplification test (NAAT)performed on the
[employer] platform.
[2025-01-17] MEDS: REMOVE LIDOCAINE PATCH 1 PATCH REMOVE (10:40)
--- NOTE | 2025-01-17 14:53 | PTCARENOTE ---
see nursing flowsheet. pt oob with assist of one. when oob pt reported feeling lightheaded. returned pt to bed. bp 100/70 upon returning to bed. pt unable to urinate on commode. bladder scanned for 410 mls. discussed with hospitalist and lowe
inserted per order. medicated x 1 with roxicodone for pain in mid back. sats 89 on room air this am. 2 liters o2 placed and sat currently 94 %. pt denies dyspnea.
--- NOTE | 2025-01-17 16:36 | W.PN.HOSP.TC ---
Today's Communication/Plan
-
Assessment / Plan
Assessment / Plan
General: No Apparent Distress, Comfortable and Conversant
HEENT: NormoCephalic, Moist mucous membranes, Atraumatic
Respiratory: Clear and Non Labored Respirations
Cardiac: S1/S2 and Regular Rhythm; No Rub or Gallop
GI: Soft, Non Tender, Non Distended and Normal Bowel Sounds
Musculoskeletal: No Edema, no deformity
Skin: Warm and dry
: NO Colon
Neuro: Awake, Alert, Nonfocal/grossly intact
Psych: Calm and Intact Judgment/Insight
Ms. James is a 59-year-old female with a medical history of metastatic melanoma of the left eye (primary diagnosed 2020, with liver mets diagnosed 2023, on Yervoy/Opdivo, recent chemoembolization 01/04/2025 at [facility]), chronic anemia,
orthostatic hypotension, and vasovagal syncope who presented with fatigue and a syncopal episode 4 days prior to arrival during which she hurt her back. She had another syncopal episode just prior to arrival. She was hypotensive and hypoxic on
admission. She had an initial temperature of 100.4 �F. She had leukocytosis of 25,000 and hyponatremia with a serum sodium of 128. Does had a mild transaminitis with AST 48 and ALT 46 with alk phos of 303. CT brain showed no acute abnormalities
but did show mild Chiari I malformation. CT chest showed mild interstitial edema and small sub-6 mm solid pulmonary nodules. X-ray lumbar spine shows acute superior endplate compression fracture of L3 with minimal loss of height and moderate
bilateral facet joint arthrosis at L5/S1. She was started on IV fluids and broad-spectrum antibiotics and admitted for further evaluation and management of sepsis secondary to possible pneumonia.
Sepsis:
- Source currently unclear but possibly due to pneumonia considering hypoxia and interstitial pulmonary edema
- BNP not significantly elevated so not suggestive of heart failure, she is hypoalbuminemic likely due to her extensive hepatic metastasis which could explain her pulmonary edema
- Continue broad-spectrum antibiotics currently with vancomycin and cefepime
- Cultures negative to date
- She could be experiencing post chemo embolization syndrome
- Will continue supportive care
- Clinically improving, monitor fever curve
L3 compression fracture:
- Supportive care
- PT/OT
Transaminitis:
- Mild, resolved
Anemia:
- Normocytic, stable
- No overt evidence of bleeding
Hyponatremia:
- Moderate, improving, monitor
DVT prophylaxis: Lovenox
CODE STATUS: Full code
Total time spent on today's encounter was 56 minutes
Anticipated Discharge: 24 - 48 hours
Subjective/Interval History
-
Date of Service: January 17, 2025
Patient was seen and examined at bedside this morning. No acute distress. Reports ongoing back pain. Currently breathing comfortably on 2 L via nasal cannula.
Objective Data
-
Labs:
Laboratory Results
01/17/25
04:16
WBC 16.4 H
Hgb 10.1 L
Hct 30.6 L
Plt Count 435 H
Sodium 133 L
Potassium 4.4
Chloride 102
Carbon Dioxide 26
BUN 10
Creatinine 0.6
Glucose 84
Calcium 7.8 L
Total Bilirubin 0.6
AST 36
ALT 35
Alkaline Phosphatase 281 H
Vital Signs:
Vital Signs
Temp Pulse Resp BP Pulse Ox
98.6 F 112 22 101/68 94
01/17/25 15:00 01/17/25 14:00 01/17/25 14:00 01/17/25 14:00 01/17/25 14:25
I&O
01/16/25 01/17/25 01/18/25
06:59 06:59 06:59
Intake Total 1160 / 1160
Output Total 1550 / 1550
Balance -390 / -390
Review of Systems
-
History Source: Patient
All other systems: Reviewed and negative
Musculoskeletal: Reports Other (Back pain)
Physical Exam
-
General: No Apparent Distress
[2025-01-17] MEDS: LOVENOX SC (17:34)
[2025-01-17] MEDS: LOVENOX 40 MG SC (17:50)
[2025-01-17] MEDS: LIDOCAINE 4% PATCH 1 PATCH TOPICAL (21:00)
[2025-01-18] VITALS (15 sets, daily range): BP systolic 83–116; BP diastolic 49–77
--- NOTE | 2025-01-18 00:49 | PTCARENOTE ---
assumed care of patient. pt is AAOx3- able to make needs known. lowe intact, lowe wipes done by this RN. pain to lower back- medicated PRN. 2L NC 94%. care ongoing.
[2025-01-18] MEDS: MAXIPIME 1000 MG IV ×4 (04:37→20:40)
[2025-01-18] MEDS: STERILE WATER FOR INJECTION 10 ML IV ×4 (04:38→20:39)
[2025-01-18] MEDS: SYNTHROID 125 MCG PO (04:48)
[2025-01-18] MEDS: VANCOCIN 200 IV (05:19)
[2025-01-18 05:24] LABS: Hematocrit 30.4 % (37.0-47.0); Hemoglobin 9.7 g/dL (12.0-16.0); Mean Corp Hgb Conc. 31.9 g/dL (33.0-37.0); Mean Corpuscular Volume 82.2 fL (81.0-99.0); Nucleated Red Blood Cells % 0 %; Platelet Count 401 10^3/uL (130-400); Red Cell Dist. Width 14.1 % (11.5-14.5)
[2025-01-18 05:51] LABS: ALT (SGPT) 26 U/L (0-35); AST (SGOT) 26 U/L (14-36); Albumin 2.8 g/dl (3.5-5.0); Alkaline Phosphatase 323 U/L (38-126); Blood Urea Nitrogen 8 mg/dl (7-17); Calcium 7.9 mg/dl (8.4-10.2); Carbon Dioxide 28 mmol/L (22-30); Chloride 92 mmol/L (98-107); Estimated Creatinine Clearance 106 ml/min; Glucose 97 mg/dl (70-99); Potassium 4.1 mmol/L (3.5-5.1); Sodium 125 mmol/L (135-145); Total Protein 6.0 g/dl (6.3-8.2); eGFR > 60.00
--- NOTE | 2025-01-18 08:13 | PTCARENOTE ---
Patient received from high school social science teacher. Patient resting comfortably in bed. AAO, VSS. No events noted overnight. Patient with complaints right sided abdominal and right lower back pain, see MAR. Currently 2L N/C, will try to wean. Patient was
attempted OOB to chair but became dizzy and lightheaded within a minute or two with SBP in the 80's. Patient was settled back in bed and BP increased. No testing scheduled at this time. Call hoyt in reach.
[2025-01-18] MEDS: CYMBALTA DELAYED RELEASE 40 MG PO (08:19)
[2025-01-18] MEDS: NSS 1000 IV (09:53)
[2025-01-18] MEDS: REMOVE LIDOCAINE PATCH 1 PATCH REMOVE (10:00)
[2025-01-18] MEDS: ROXICODONE 5 MG PO ×2 (11:33→18:30)
--- NOTE | 2025-01-18 14:48 | W.PN.HOSP.TC ---
Addendum entered and electronically signed by Demetrius Vasquez DO 01/19/25 09:07:
Acute non-cardiac pulmonary edema due to other cause (suspect third spacing due to hypoalbuminemia)
Original Note:
Today's Communication/Plan
-
Assessment / Plan
Assessment / Plan
General: No Apparent Distress, Comfortable and Conversant
HEENT: NormoCephalic, Moist mucous membranes, Atraumatic
Respiratory: Clear and Non Labored Respirations
Cardiac: S1/S2 and Regular Rhythm; No Rub or Gallop
GI: Soft, Non Tender, Non Distended and Normal Bowel Sounds
Musculoskeletal: No Edema, no deformity
Skin: Warm and dry
: NO Colon
Neuro: Awake, Alert, Nonfocal/grossly intact
Psych: Calm and Intact Judgment/Insight
Ms. James is a 59-year-old female with a medical history of metastatic melanoma of the left eye (primary diagnosed 2020, with liver mets diagnosed 2023, on Yervoy/Opdivo, recent chemoembolization 01/04/2025 at [facility]), chronic anemia,
orthostatic hypotension, and vasovagal syncope who presented with fatigue and a syncopal episode 4 days prior to arrival during which she hurt her back. She had another syncopal episode just prior to arrival. She was hypotensive and hypoxic on
admission. She had an initial temperature of 100.4 �F. She had leukocytosis of 25,000 and hyponatremia with a serum sodium of 128. Does had a mild transaminitis with AST 48 and ALT 46 with alk phos of 303. CT brain showed no acute abnormalities
but did show mild Chiari I malformation. CT chest showed mild interstitial edema and small sub-6 mm solid pulmonary nodules. X-ray lumbar spine shows acute superior endplate compression fracture of L3 with minimal loss of height and moderate
bilateral facet joint arthrosis at L5/S1. She was started on IV fluids and broad-spectrum antibiotics and admitted for further evaluation and management of sepsis secondary to possible pneumonia.
Sepsis:
- Source currently unclear but possibly due to pneumonia considering hypoxia and interstitial pulmonary edema
- BNP not significantly elevated so not suggestive of heart failure, she is hypoalbuminemic likely due to her extensive hepatic metastasis which could explain her pulmonary edema
- Continue broad-spectrum antibiotics currently with cefepime, vancomycin discontinued after negative MRSA screen
- Cultures negative to date
- She could be experiencing post chemo embolization syndrome, attempting to contact her primary oncologist Dr. Lalo Joshi at [facility]
- Will continue supportive care, continue resuscitative fluids for hypotension
- Clinically improving, monitor fever curve
Hyponatremia:
- Serum sodium 125 on labs this morning, suspect hypovolemic
- Continue isotonic fluids
- Monitor
L3 compression fracture:
- Supportive care
- PT/OT
Transaminitis:
- Mild, resolved
Anemia:
- Normocytic, stable
- No overt evidence of bleeding
DVT prophylaxis: Lovenox
CODE STATUS: Full code
Anticipated Discharge: > 48 hours
Subjective/Interval History
-
Date of Service: January 18, 2025
Patient was seen and examined at bedside this morning. Back pain improved. Still having orthostatic hypotension. Started IV fluids.
Objective Data
-
Labs:
Laboratory Results
01/18/25
04:55
WBC 18.7 H
Hgb 9.7 L
Hct 30.4 L
Plt Count 401 H
Sodium 125 L D
Potassium 4.1
Chloride 92 L
Carbon Dioxide 28
BUN 8
Creatinine 0.5 L
Glucose 97
Calcium 7.9 L
Total Bilirubin 0.9
AST 26
ALT 26
Alkaline Phosphatase 323 H
Vital Signs:
Vital Signs
Temp Pulse Resp BP Pulse Ox
99 F 73 28 97/53 92
01/18/25 11:50 01/18/25 08:19 01/18/25 08:19 01/18/25 08:19 01/18/25 10:56
I&O
01/17/25 01/18/25 01/19/25
06:59 06:59 06:59
Intake Total 1160 / 1160
Output Total 1550 / 1550 1050 / 1050
Balance -390 / -390 -1050 / -1050
Review of Systems
-
History Source: Patient
All other systems: Reviewed and negative
Musculoskeletal: Reports Other (Low back pain)
Physical Exam
-
General: No Apparent Distress
--- NOTE | 2025-01-18 16:08 | CM ---
Following up on Patient. RN stated that patient is still on 2 liters and her pressures are still a little low. PT/OT is still yet to determine recommendations. PLAN: Anticipate Home No Needs vs. PT
--- NOTE | 2025-01-18 16:15 | PN.CDI ---
CDI
- -
CDI:
Physician Documentation Request
Admit Date: 01/16/25 18:11
Dear Doctor Pedro,
Please review the following and provide your response in the progress notes.
Clinical Indicators:
PN, 01/18
#Sepsis:
#...- Source currently unclear but possibly due to pneumonia considering hypoxia
#...and interstitial pulmonary edema
#...- BNP not significantly elevated so not suggestive of heart failure,
#...she is hypoalbuminemic likely due to her extensive hepatic metastasis
#...which could explain her pulmonary edema
Based on the above and your clinical assessment, please clarify the acuity and etiology of the pulmonary edema:
Acute non-cardiac pulmonary edema due to fluid overload
Acute non-cardiac pulmonary edema due to other cause (please specify)
Chronic pulmonary edema due to non-cardiac etiology (specify cause)
Other(please specify)
Use of terms such as suspected, likely, concern for, or probable (associated with a specific diagnosis that is being evaluated, monitored, or treated as if it exists) are acceptable and can be coded in the inpatient setting, when documented at the
time of discharge.
Thank you,
Nunu Louise RN BSN CCDS
CDI Specialist
Please contact via tiger text
Please use your independent medical judgment in providing your response.
[2025-01-18] MEDS: LOVENOX 40 MG SC (17:31)
[2025-01-18] MEDS: LIDOCAINE 4% PATCH 1 PATCH TOPICAL (20:34)
[2025-01-19] VITALS (16 sets, daily range): BP systolic 78–118; BP diastolic 53–82; PULSE 85–98
[2025-01-19] MEDS: TYLENOL 650 MG PO ×3 (00:04→20:18)
--- NOTE | 2025-01-19 00:52 | PTCARENOTE ---
Patient AAOx3. 1L IVF completed. IV abx cont. Pt c/o pain to the right middle/lower back. Lidocaine patch placed per orders, see MAR. Pt states relief from the lidocaine patch. Pt on 2L NC. Tachypneic with exertion. Pt repositioned and requesting
PRN Tylenol. Clarified with NIKKI Rapp, OK to administer, see MAR. Bed alarm on due to high fall risk. Call hoyt within reach.
[2025-01-19] MEDS: ROXICODONE 5 MG PO ×3 (01:41→23:41)
[2025-01-19] MEDS: STERILE WATER FOR INJECTION 10 ML IV ×4 (05:11→21:37)
[2025-01-19] MEDS: MAXIPIME 1000 MG IV ×4 (05:11→21:37)
[2025-01-19] MEDS: SYNTHROID 125 MCG PO (05:11)
[2025-01-19 05:33] LABS: Hematocrit 30.0 % (37.0-47.0); Hemoglobin 9.7 g/dL (12.0-16.0); Mean Corp Hgb Conc. 32.3 g/dL (33.0-37.0); Mean Corpuscular Volume 81.1 fL (81.0-99.0); Nucleated Red Blood Cells % 0 %; Platelet Count 381 10^3/uL (130-400); Red Cell Dist. Width 13.7 % (11.5-14.5)
[2025-01-19 05:49] LABS: ALT (SGPT) 19 U/L (0-35); AST (SGOT) 22 U/L (14-36); Albumin 2.8 g/dl (3.5-5.0); Alkaline Phosphatase 322 U/L (38-126); Blood Urea Nitrogen 7 mg/dl (7-17); Calcium 8.0 mg/dl (8.4-10.2); Carbon Dioxide 29 mmol/L (22-30); Chloride 95 mmol/L (98-107); Estimated Creatinine Clearance 106 ml/min; Glucose 100 mg/dl (70-99); Potassium 3.8 mmol/L (3.5-5.1); Sodium 126 mmol/L (135-145); Total Protein 5.8 g/dl (6.3-8.2); eGFR > 60.00
[2025-01-19] MEDS: SENOKOT-S 1 TABLET PO ×2 (05:50→20:12)
--- NOTE | 2025-01-19 06:27 | PTCARENOTE ---
Patient sat at the edge of the bed and stood to get washed up. Pt orthostatic vitals positive see worklist. Pt became hypotensive and symptomatic. Pt feeling dizzy. Pt sat down and recovered quickly. Pt back into bed, resting comfortably.
--- NOTE | 2025-01-19 09:05 | PTCARENOTE ---
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 Patient resting comfortably in bed. AAO, VSS. No events noted overnight. Patient with continued complaints or right sided abdominal and right lower back pain, see JUN. Currently remains 2L N/C, will try to
wean. Patient was orthostatic overnight and dizzy and lightheaded. Hospitalist made aware this AM and another 1000mL of NSS ordered at 100mL/hr. Patient remains without BM, senna given overnight. No testing scheduled at this time. Call hoyt in
reach.
[2025-01-19] MEDS: CYMBALTA DELAYED RELEASE 40 MG PO (09:18)
[2025-01-19] MEDS: REMOVE LIDOCAINE PATCH 1 PATCH REMOVE (09:19)
[2025-01-19] MEDS: NSS 1000 IV ×2 (09:19→20:12)
--- NOTE | 2025-01-19 10:56 | CM ---
Maintained on 2 liter oxygen Pox 92 %.
On Iv antibiotic.
PT OT would be when appropriate.
Pain med as needed.
BP orthostatic.
PLAN Discharge planning ongoing
[2025-01-19] MEDS: DELTASONE 10 MG PO (11:31)
[2025-01-19 11:55] LABS: Cortisol, Random 7.9 ug/dl
--- NOTE | 2025-01-19 16:38 | W.PN.HOSP.TC ---
Today's Communication/Plan
-
Assessment / Plan
Assessment / Plan
General: No Apparent Distress, Comfortable and Conversant
HEENT: NormoCephalic, Moist mucous membranes, Atraumatic
Respiratory: Clear and Non Labored Respirations
Cardiac: S1/S2 and Regular Rhythm; No Rub or Gallop
GI: Soft, Non Tender, Non Distended and Normal Bowel Sounds
Musculoskeletal: No Edema, no deformity
Skin: Warm and dry
: NO Colon
Neuro: Awake, Alert, Nonfocal/grossly intact
Psych: Calm and Intact Judgment/Insight
Ms. 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
orthostatic hypotension, and vasovagal syncope who presented with fatigue and a syncopal episode 4 days prior to arrival during which she hurt her back. She had another syncopal episode just prior to arrival. She was hypotensive and hypoxic on
admission. She had an initial temperature of 100.4 �F. She had leukocytosis of 25,000 and hyponatremia with a serum sodium of 128. Does had a mild transaminitis with AST 48 and ALT 46 with alk phos of 303. CT brain showed no acute abnormalities
but did show mild Chiari I malformation. CT chest showed mild interstitial edema and small sub-6 mm solid pulmonary nodules. X-ray lumbar spine shows acute superior endplate compression fracture of L3 with minimal loss of height and moderate
bilateral facet joint arthrosis at L5/S1. She was started on IV fluids and broad-spectrum antibiotics and admitted for further evaluation and management of sepsis secondary to possible pneumonia.
Sepsis:
- Source currently unclear but possibly due to pneumonia considering hypoxia and interstitial pulmonary edema
- BNP not significantly elevated so not suggestive of heart failure, she is hypoalbuminemic likely due to her extensive hepatic metastasis which could explain her pulmonary edema
- Continue broad-spectrum antibiotics currently with cefepime, vancomycin discontinued after negative MRSA screen
- Cultures negative to date
- She could be experiencing post chemo embolization syndrome, discussed the case with her primary oncologist Dr. Lalo Joshi at [place]
- Will continue supportive care, continue resuscitative fluids for hypotension
- Clinically improving, has been afebrile greater than 48 hours
- Continues to have orthostatic hypotension with dizziness, a.m. cortisol level of 7 which is indeterminate, will repeat tomorrow morning and perform ACTH stimulation test if appropriate
Orthostatic hypotension:
- Unclear if this is due to adrenal insufficiency, she has been on multiple courses of steroids in the past including a large dose just prior to her chemoembolization
- AM cortisol of 7 this morning which is indeterminate, will repeat cortisol level in the morning and perform an ACTH stim test if appropriate
- In the meantime continuing IV fluids
Hyponatremia:
- Serum sodium remains low at 126 on labs this morning, suspect hypovolemic
- Continue isotonic fluids
- Monitor
- Potentially could be due to renal insufficiency, plan as above
L3 compression fracture:
- Supportive care
- PT/OT
Transaminitis:
- Mild, resolved
Anemia:
- Normocytic, stable
- No overt evidence of bleeding
DVT prophylaxis: Lovenox
CODE STATUS: Full code
Anticipated Discharge: 24 - 48 hours
Subjective/Interval History
-
Date of Service: January 19, 2025
Patient was seen and examined at bedside this morning. Still orthostatic with dizziness.
Objective Data
-
Labs:
Laboratory Results
01/19/25
05:09
WBC 15.8 H
Hgb 9.7 L
Hct 30.0 L
Plt Count 381
Sodium 126 L
Potassium 3.8
Chloride 95 L
Carbon Dioxide 29
BUN 7
Creatinine 0.5 L
Glucose 100 H
Calcium 8.0 L
Total Bilirubin 0.7
AST 22
ALT 19
Alkaline Phosphatase 322 H
Vital Signs:
Vital Signs
Temp Pulse Resp BP Pulse Ox
98 F 79 18 101/60 95
01/19/25 14:59 01/19/25 12:00 01/19/25 12:00 01/19/25 12:00 01/19/25 12:00
I&O
01/18/25 01/19/25 01/20/25
06:59 06:59 06:59
Intake Total 480 / 480
Output Total 1050 / 1050 2350 / 2350 600 / 600
Balance -1050 / -1050 -1870 / -1870 -600 / -600
Review of Systems
-
History Source: Patient
All other systems: Reviewed and negative
Neuro: Reports Dizzy (Dizziness with standing associated with orthostatic hypotension)
Physical Exam
-
General: No Apparent Distress
[2025-01-19] MEDS: LOVENOX 40 MG SC (17:58)
[2025-01-19] MEDS: LIDOCAINE 4% PATCH 1 PATCH TOPICAL (21:36)
[2025-01-20] VITALS (19 sets, daily range): BP systolic 103–132; BP diastolic 57–97; PULSE 94–97; O2SAT 93
--- NOTE | 2025-01-20 00:08 | PTCARENOTE ---
Patient AAOx3. VSS. No events noted during the day. Pt c/o right sided back pain, PRN Tylenol w/ minimal improvement. Pt 10/21 pain, PRN Roxicodone administered see JUN. Applied Lidocaine patch. Pt on 2L NC. SpO2 92%. Pt denies any lightheadedness,
but did not attempt to get OOB. NSS cont at 100ml/hr. IV abx cont. Pt passing gas but has not had a BM. Senna BID. Assessment and care as charted, see worklist. Call hoyt within reach.
[2025-01-20] MEDS: FLEXERIL 5 MG PO (02:20)
[2025-01-20] MEDS: MAXIPIME 1000 MG IV ×4 (04:17→20:42)
[2025-01-20] MEDS: STERILE WATER FOR INJECTION 10 ML IV ×4 (04:17→20:42)
[2025-01-20] MEDS: TYLENOL 650 MG PO ×2 (04:56→17:39)
[2025-01-20] MEDS: NSS 1000 IV ×2 (04:59→16:13)
[2025-01-20] MEDS: SYNTHROID 125 MCG PO (05:53)
[2025-01-20 06:05] LABS: Hematocrit 26.9 % (37.0-47.0); Hemoglobin 8.6 g/dL (12.0-16.0); Mean Corp Hgb Conc. 32.0 g/dL (33.0-37.0); Mean Corpuscular Volume 81.3 fL (81.0-99.0); Nucleated Red Blood Cells % 0 %; Platelet Count 376 10^3/uL (130-400); Red Cell Dist. Width 13.6 % (11.5-14.5)
[2025-01-20 06:44] LABS: ALT (SGPT) 16 U/L (0-35); AST (SGOT) 20 U/L (14-36); Albumin 2.9 g/dl (3.5-5.0); Alkaline Phosphatase 328 U/L (38-126); Blood Urea Nitrogen 9 mg/dl (7-17); Calcium 8.2 mg/dl (8.4-10.2); Carbon Dioxide 27 mmol/L (22-30); Chloride 100 mmol/L (98-107); Estimated Creatinine Clearance 106 ml/min; Glucose 102 mg/dl (70-99); Potassium 3.9 mmol/L (3.5-5.1); Sodium 130 mmol/L (135-145); Total Protein 6.0 g/dl (6.3-8.2); eGFR > 60.00
[2025-01-20 07:04] LABS: Cortisol, Random 5.4 ug/dl
[2025-01-20] MEDS: CYMBALTA DELAYED RELEASE 40 MG PO (09:02)
[2025-01-20] MEDS: SENOKOT-S 1 TABLET PO ×2 (09:02→20:41)
[2025-01-20] MEDS: REMOVE LIDOCAINE PATCH 1 PATCH REMOVE (09:04)
[2025-01-20] MEDS: MIRALAX 17 GRAMS PO (09:06)
[2025-01-20] MEDS: ROXICODONE 5 MG PO (10:27)
[2025-01-20] MEDS: CORTROSYN 0.25 MG IV (11:43)
[2025-01-20] MEDS: DULCOLAX 10 MG RECTAL (13:00)
[2025-01-20 13:24] LABS: ACTH Stim Cortisol 30 Min 18.5 ug/dl
--- NOTE | 2025-01-20 14:05 | PTCARENOTE ---
Patients lowe removed this morning at 0600. Patient unable to urinate on her own, placed on commode and bedpan several times. Patients bladder scan 403, st cath for 403ml chapis urine without difficulty. Patient has not had a bowel movement during
htis hospital stay, see MAR for bowel regimen administered. No issues with dizziness this afternoon with transfer to the commode and back.
--- NOTE | 2025-01-20 14:52 | W.PN.HOSP.TC ---
Today's Communication/Plan
-
Assessment / Plan
Assessment / Plan
General: No Apparent Distress, Comfortable and Conversant
HEENT: NormoCephalic, Moist mucous membranes, Atraumatic
Respiratory: Clear and Non Labored Respirations
Cardiac: S1/S2 and Regular Rhythm; No Rub or Gallop
GI: Soft, Non Tender, Non Distended and Normal Bowel Sounds
Musculoskeletal: No Edema, no deformity
Skin: Warm and dry
: NO Colon
Neuro: Awake, Alert, Nonfocal/grossly intact
Psych: Calm and Intact Judgment/Insight
Ms. James is a 59-year-old female with a medical history of metastatic melanoma of the left eye (primary diagnosed 2020, with liver mets diagnosed 2023, on Yervoy/Opdivo, recent chemoembolization 01/04/2025 at [place]), chronic anemia,
orthostatic hypotension, and vasovagal syncope who presented with fatigue and a syncopal episode 4 days prior to arrival during which she hurt her back. She had another syncopal episode just prior to arrival. She was hypotensive and hypoxic on
admission. She had an initial temperature of 100.4 �F. She had leukocytosis of 25,000 and hyponatremia with a serum sodium of 128. Does had a mild transaminitis with AST 48 and ALT 46 with alk phos of 303. CT brain showed no acute abnormalities
but did show mild Chiari I malformation. CT chest showed mild interstitial edema and small sub-6 mm solid pulmonary nodules. X-ray lumbar spine shows acute superior endplate compression fracture of L3 with minimal loss of height and moderate
bilateral facet joint arthrosis at L5/S1. She was started on IV fluids and broad-spectrum antibiotics and admitted for further evaluation and management of sepsis secondary to possible pneumonia.
Sepsis:
- Source currently unclear but possibly due to pneumonia considering hypoxia and interstitial pulmonary edema
- BNP not significantly elevated so not suggestive of heart failure, she is hypoalbuminemic likely due to her extensive hepatic metastasis which could explain her pulmonary edema
- Continue broad-spectrum antibiotics currently with cefepime, vancomycin discontinued after negative MRSA screen
- Cultures negative to date
- She could be experiencing post chemo embolization syndrome, discussed the case with her primary oncologist Dr. Lalo Joshi at [place]
- Will continue supportive care, continue resuscitative fluids for hypotension
- Clinically improving, has been afebrile greater than 48 hours
- Continues to have orthostatic hypotension with dizziness, a.m. cortisol level of 7 which is indeterminate, will repeat tomorrow morning and perform ACTH stimulation test if appropriate
Orthostatic hypotension:
- Unclear if this is due to adrenal insufficiency, she has been on multiple courses of steroids in the past including a large dose just prior to her chemoembolization
- AM cortisol of 5 this morning which is indeterminate, performed an ACTH stim test with adequate response at 30 minutes
- I still feel there is some degree of adrenal insufficiency here and so we will start prednisone 10 mg daily to see if this helps with her orthostatic hypotension
- In the meantime continuing IV fluids
Hyponatremia:
- Serum sodium improving 130 on labs this morning, suspect hypovolemic
- Continue isotonic fluids today
- Monitor
- Potentially could be due to renal insufficiency, plan as above
L3 compression fracture:
- Supportive care
- PT/OT
Transaminitis:
- Mild, resolved
Anemia:
- Normocytic, stable
- No overt evidence of bleeding
- Suspect there is a dilutional component here with the IV fluids she has been getting
- Will monitor
DVT prophylaxis: Lovenox
CODE STATUS: Full code
Anticipated Discharge: 24 - 48 hours
Subjective/Interval History
-
Date of Service: January 20, 2025
Patient was seen and examined at bedside this morning. Still having back pain. Blood pressure somewhat improved.
Objective Data
-
Labs:
Laboratory Results
01/20/25 01/20/25
04:46 05:48
WBC Cancelled 16.8 H
Hgb Cancelled 8.6 L
Hct Cancelled 26.9 L
Plt Count Cancelled 376
Sodium Cancelled 130 L
Potassium Cancelled 3.9
Chloride Cancelled 100
Carbon Dioxide Cancelled 27
BUN Cancelled 9
Creatinine Cancelled 0.4 L
Glucose Cancelled 102 H
Calcium Cancelled 8.2 L
Total Bilirubin Cancelled 0.7
AST Cancelled 20
ALT Cancelled 16
Alkaline Phosphatase Cancelled 328 H
Vital Signs:
Vital Signs
Temp Pulse Resp BP Pulse Ox
98.5 F 89 29 109/57 94
01/20/25 11:59 01/20/25 14:01 01/20/25 14:01 01/20/25 14:01 01/20/25 12:00
I&O
01/19/25 01/20/25 01/21/25
06:59 06:59 06:59
Intake Total 480 / 480 2200 / 2200
Output Total 2350 / 2350 3000 / 3000 400 / 400
Balance -1870 / -1870 -800 / -800 -400 / -400
Review of Systems
-
History Source: Patient
All other systems: Reviewed and negative
Musculoskeletal: Reports Joint Pain (Back pain)
Physical Exam
-
General: No Apparent Distress and Pain
--- NOTE | 2025-01-20 16:11 | CM ---
Following up on Patient. RN stated that the patient is retaining urine, has not had a BM in 6 days, and still on IV hydration. PT/OT recommending SNF today, but patient not available to speak to so will discuss tomorrow. PLAN: SNF if patient agrees.
[2025-01-20] MEDS: DELTASONE 10 MG PO (16:13)
[2025-01-20] MEDS: NSS (PRESERVATIVE FREE) 10 ML IV (16:14)
[2025-01-20] MEDS: PROTONIX IV 40 MG IV (16:14)
--- NOTE | 2025-01-20 17:29 | PTCARENOTE ---
Patient given bowel regimen today due to no BM during this hospital stay. Patient had a small gelantinous yellow bowel movement. Patient denying nausea, abdomen is soft, and she has intermittent pain on the right side. Patient has been eating poor
to fair today. Notified hospitalist of alteraltion in bowel movement.
[2025-01-20] MEDS: LOVENOX 40 MG SC (17:43)
[2025-01-20] MEDS: LIDOCAINE 4% PATCH 1 PATCH TOPICAL (20:42)
[2025-01-21] VITALS (21 sets, daily range): BP systolic 120–141; BP diastolic 67–99; PULSE 94–102; O2SAT 93
--- NOTE | 2025-01-21 02:39 | PTCARENOTE ---
Patient AAOx3, anxious at times. Pt ambulating to the BSC with standby assistance. Pt BP stable negative orthostatic vitals. Pt denies dizziness or lightheadedness. No BM at this time. Pt did have a BM during the day. Administered scheduled Senna.
Bowel sounds present. R sided back pain improved with PRN Tylenol and topical Lidocaine patch. Pt on 1L NC 93%. IV abx administered. NSR on the monitor. VSS. Assessment and care as charted see worklist. Call hoyt within reach.
[2025-01-21] MEDS: TYLENOL 650 MG PO ×3 (02:58→21:05)
[2025-01-21] MEDS: STERILE WATER FOR INJECTION 10 ML IV ×4 (03:00→21:06)
[2025-01-21] MEDS: MAXIPIME 1000 MG IV ×4 (03:00→21:06)
[2025-01-21] MEDS: SYNTHROID 125 MCG PO (05:52)
[2025-01-21 06:11] LABS: Hematocrit 24.5 % (37.0-47.0); Hemoglobin 8.1 g/dL (12.0-16.0); Mean Corp Hgb Conc. 33.1 g/dL (33.0-37.0); Mean Corpuscular Volume 79.8 fL (81.0-99.0); Nucleated Red Blood Cells % 0 %; Platelet Count 417 10^3/uL (130-400); Red Cell Dist. Width 13.8 % (11.5-14.5)
[2025-01-21 06:32] LABS: Blood Urea Nitrogen 8 mg/dl (7-17); Calcium 8.2 mg/dl (8.4-10.2); Carbon Dioxide 29 mmol/L (22-30); Chloride 100 mmol/L (98-107); Estimated Creatinine Clearance 106 ml/min; Glucose 90 mg/dl (70-99); Potassium 3.9 mmol/L (3.5-5.1); Sodium 133 mmol/L (135-145); eGFR > 60.00
[2025-01-21] MEDS: DELTASONE 10 MG PO (08:09)
[2025-01-21] MEDS: CYMBALTA DELAYED RELEASE 40 MG PO (08:09)
[2025-01-21] MEDS: SENOKOT-S 1 TABLET PO ×2 (08:09→21:05)
[2025-01-21] MEDS: PROTONIX IV 40 MG IV (08:09)
[2025-01-21] MEDS: NSS (PRESERVATIVE FREE) 10 ML IV (08:10)
[2025-01-21] MEDS: REMOVE LIDOCAINE PATCH 1 PATCH REMOVE (11:30)
--- NOTE | 2025-01-21 12:07 | PTCARENOTE ---
Pt desatting to 80's on 1L NC. O2 increased to 4L NC, sats approx 90-92. Dr. Vasquez notified via TT.
[2025-01-21] MEDS: LASIX 20 MG IV (12:23)
--- NOTE | 2025-01-21 15:36 | W.PN.HOSP.TC ---
Today's Communication/Plan
-
Assessment / Plan
Assessment / Plan
General: No Apparent Distress, Comfortable and Conversant
HEENT: NormoCephalic, Moist mucous membranes, Atraumatic
Respiratory: Clear and Non Labored Respirations
Cardiac: S1/S2 and Regular Rhythm; No Rub or Gallop
GI: Soft, Non Tender, Non Distended and Normal Bowel Sounds
Musculoskeletal: No Edema, no deformity
Skin: Warm and dry
: NO Colon
Neuro: Awake, Alert, Nonfocal/grossly intact
Psych: Calm and Intact Judgment/Insight
Ms. James is a 59-year-old female with a medical history of metastatic melanoma of the left eye (primary diagnosed 2020, with liver mets diagnosed 2023, on Yervoy/Opdivo, recent chemoembolization 01/04/2025 at [place]), chronic anemia,
orthostatic hypotension, and vasovagal syncope who presented with fatigue and a syncopal episode 4 days prior to arrival during which she hurt her back. She had another syncopal episode just prior to arrival. She was hypotensive and hypoxic on
admission. She had an initial temperature of 100.4 �F. She had leukocytosis of 25,000 and hyponatremia with a serum sodium of 128. Does had a mild transaminitis with AST 48 and ALT 46 with alk phos of 303. CT brain showed no acute abnormalities
but did show mild Chiari I malformation. CT chest showed mild interstitial edema and small sub-6 mm solid pulmonary nodules. X-ray lumbar spine shows acute superior endplate compression fracture of L3 with minimal loss of height and moderate
bilateral facet joint arthrosis at L5/S1. She was started on IV fluids and broad-spectrum antibiotics and admitted for further evaluation and management of sepsis secondary to possible pneumonia.
Sepsis:
- Source currently unclear but possibly due to pneumonia considering hypoxia and interstitial pulmonary edema
- BNP not significantly elevated so not suggestive of heart failure, she is hypoalbuminemic likely due to her extensive hepatic metastasis which could explain her pulmonary edema
- Continue broad-spectrum antibiotics currently with cefepime through tonight 01/21 to complete a total 5-day course, vancomycin discontinued after negative MRSA screen
- Cultures negative to date
- Presentation likely at least partially due to post chemo embolization syndrome, discussed the case with her primary oncologist Dr. Lalo Joshi at [place]
- Status post fluid resuscitation, discontinued IV fluids now as she became volume overloaded with mild pulmonary edema and hypoxia, gave a dose of IV Lasix, will plan off of supplemental oxygen as able
- Clinically improving, has been afebrile greater than 48 hours
Orthostatic hypotension:
- Suspect this is due to adrenal insufficiency, she has been on multiple courses of steroids in the past including a large dose just prior to her chemoembolization
- Had an AM cortisol of 5 this which is indeterminate, performed an ACTH stim test with adequate response at 30 minutes
- However, I still feel there is some degree of adrenal insufficiency here and so have started prednisone 10 mg daily with appropriate response in blood pressure and electrolytes
- Discontinued IV fluids
- Will need outpatient follow-up for weaning of steroids and repeat ACTH stim test as appropriate
- Repeat orthostatic vital signs
Acute hypoxic respiratory failure:
- Suspect due to volume overload from recent IV fluids which have now been discontinued
- Given a dose of IV Lasix, will monitor for response
- Titrate off of supplemental oxygen as able
- Assess for home oxygen needs prior to discharge
Hyponatremia:
- Serum sodium improving 133 on labs this morning, suspect was contributed to by adrenal insufficiency
- Discontinued IV fluids
- Continue prednisone 10 mg daily as outlined above
L3 compression fracture:
- Supportive care
- PT/OT
Transaminitis:
- Mild, resolved
Anemia:
- Normocytic, stable
- No overt evidence of bleeding
- Suspect there is a dilutional component here with the IV fluids she had received
- Will monitor
DVT prophylaxis: Lovenox
CODE STATUS: Full code
Anticipated Discharge: 24 - 48 hours
Subjective/Interval History
-
Date of Service: January 21, 2025
Patient was seen and examined at bedside morning. Feeling better and her blood pressure has stabilized. She still remains dyspneic and hypoxic with minimal exertion.
Objective Data
-
Labs:
Laboratory Results
01/21/25
05:48
WBC 14.3 H
Hgb 8.1 L
Hct 24.5 L
Plt Count 417 H
Sodium 133 L
Potassium 3.9
Chloride 100
Carbon Dioxide 29
BUN 8
Creatinine 0.4 L
Glucose 90
Calcium 8.2 L
Vital Signs:
Vital Signs
Temp Pulse Resp BP Pulse Ox
97.9 F 105 23 125/80 92
01/21/25 14:53 01/21/25 14:00 01/21/25 14:00 01/21/25 12:00 01/21/25 15:02
I&O
01/20/25 01/21/25 01/22/25
06:59 06:59 06:59
Intake Total 2200 / 2200 1200 / 1200
Output Total 3000 / 3000 900 / 900 410 / 410
Balance -800 / -800 300 / 300 -410 / -410
Review of Systems
-
History Source: Patient
All other systems: Reviewed and negative
Respiratory: Reports Trouble Breathing
Musculoskeletal: Reports Joint Pain (Back pain)
Physical Exam
-
General: No Apparent Distress
--- NOTE | 2025-01-21 16:48 | PTCARENOTE ---
Pt presents as assessed. Aox3. NSR on tele monitor. Sating mid 90's on 4L NC. OOB to chair. Care as documented. Ringing appropriately. Call hoyt within reach.
--- NOTE | 2025-01-21 16:50 | CM ---
Following up on Patient. FAREED Altman met with the patient who wanted to see PT/OT before she made a decision, but leaning towards 'going home'. PT/OT recommended Home PT, but patient refused and knows to call a Home Care agency and her PCP for the
order if she needed it. Patient stated that she has family/ friends to help. Now, patient is being diuresis so might not need Home O2. If the patient does, [employer] would be able to assist this weekend. IMM Completed.
PLAN: Home No Needs vs. Home O2.
[2025-01-21] MEDS: LOVENOX 40 MG SC (17:46)
[2025-01-21] MEDS: LIDOCAINE 4% PATCH 1 PATCH TOPICAL (21:06)
[2025-01-22] VITALS (13 sets, daily range): BP systolic 116–146; BP diastolic 71–95
[2025-01-22] MEDS: TYLENOL 650 MG PO ×4 (02:13→21:10)
[2025-01-22] MEDS: STERILE WATER FOR INJECTION IV (04:37)
[2025-01-22] MEDS: SYNTHROID 125 MCG PO (04:48)
[2025-01-22 05:06] LABS: Hematocrit 25.3 % (37.0-47.0); Hemoglobin 8.2 g/dL (12.0-16.0); Mean Corp Hgb Conc. 32.4 g/dL (33.0-37.0); Mean Corpuscular Volume 80.3 fL (81.0-99.0); Nucleated Red Blood Cells % 0 %; Platelet Count 431 10^3/uL (130-400); Red Cell Dist. Width 13.8 % (11.5-14.5)
[2025-01-22 05:30] LABS: Blood Urea Nitrogen 11 mg/dl (7-17); Calcium 8.2 mg/dl (8.4-10.2); Carbon Dioxide 31 mmol/L (22-30); Chloride 98 mmol/L (98-107); Estimated Creatinine Clearance 106 ml/min; Glucose 84 mg/dl (70-99); Potassium 3.6 mmol/L (3.5-5.1); Sodium 133 mmol/L (135-145); eGFR > 60.00
--- NOTE | 2025-01-22 06:04 | PTCARENOTE ---
patient aaox3. 3L NC spo2 94%, NSR on tele monitor. assessment and vital signs as documented. call hoyt in reach.
[2025-01-22] MEDS: CYMBALTA DELAYED RELEASE 40 MG PO (07:56)
[2025-01-22] MEDS: PROTONIX IV 40 MG IV (07:56)
[2025-01-22] MEDS: DELTASONE 10 MG PO (07:56)
[2025-01-22] MEDS: SENOKOT-S 1 TABLET PO ×2 (07:56→21:10)
[2025-01-22] MEDS: NSS (PRESERVATIVE FREE) 10 ML IV (07:56)
[2025-01-22] MEDS: REMOVE LIDOCAINE PATCH 1 PATCH REMOVE (09:42)
--- NOTE | 2025-01-22 14:56 | W.PN.HOSP.TC ---
Today's Communication/Plan
-
Assessment / Plan
Assessment / Plan
General: No Apparent Distress, Comfortable and Conversant
HEENT: NormoCephalic, Moist mucous membranes, Atraumatic
Respiratory: Clear and Non Labored Respirations
Cardiac: S1/S2 and Regular Rhythm; No Rub or Gallop
GI: Soft, Non Tender, Non Distended and Normal Bowel Sounds
Musculoskeletal: No Edema, no deformity
Skin: Warm and dry
: NO Colon
Neuro: Awake, Alert, Nonfocal/grossly intact
Psych: Calm and Intact Judgment/Insight
Ms. James is a 59-year-old female with a medical history of metastatic melanoma of the left eye (primary diagnosed 2020, with liver mets diagnosed 2023, on Yervoy/Opdivo, recent chemoembolization 01/04/2025 at [place]), chronic anemia,
orthostatic hypotension, and vasovagal syncope who presented with fatigue and a syncopal episode 4 days prior to arrival during which she hurt her back. She had another syncopal episode just prior to arrival. She was hypotensive and hypoxic on
admission. She had an initial temperature of 100.4 �F. She had leukocytosis of 25,000 and hyponatremia with a serum sodium of 128. Does had a mild transaminitis with AST 48 and ALT 46 with alk phos of 303. CT brain showed no acute abnormalities
but did show mild Chiari I malformation. CT chest showed mild interstitial edema and small sub-6 mm solid pulmonary nodules. X-ray lumbar spine shows acute superior endplate compression fracture of L3 with minimal loss of height and moderate
bilateral facet joint arthrosis at L5/S1. She was started on IV fluids and broad-spectrum antibiotics and admitted for further evaluation and management of sepsis secondary to possible pneumonia.
Sepsis:
- Source currently unclear but possibly due to pneumonia considering hypoxia and interstitial pulmonary edema
- BNP not significantly elevated so not suggestive of heart failure, she is hypoalbuminemic likely due to her extensive hepatic metastasis which could explain her pulmonary edema
- Completed a 5-day course of antibiotics, cultures negative to date
- Presentation likely at least partially due to post chemo embolization syndrome, discussed the case with her primary oncologist Dr. Lalo Joshi at [place]
- Status post fluid resuscitation, discontinued IV fluids now as she became volume overloaded with mild pulmonary edema and hypoxia, improved with 1 dose of IV Lasix, will wean off of supplemental oxygen as able
- Medically stable for discharge, will assess for home oxygen needs
Orthostatic hypotension:
- Suspect this is due to adrenal insufficiency, she has been on multiple courses of steroids in the past including a large dose just prior to her chemoembolization
- Had an AM cortisol of 5 which is indeterminate, performed an ACTH stim test with adequate response at 30 minutes
- However, I still feel there is some degree of adrenal insufficiency here and so have started prednisone 10 mg daily with appropriate response in blood pressure and electrolytes
- Discontinued IV fluids
- Will need outpatient follow-up for weaning of steroids and repeat ACTH stim test as appropriate
- Repeat orthostatic vital signs
Acute hypoxic respiratory failure:
- Suspect due to volume overload from recent IV fluids which have now been discontinued
- Given a dose of IV Lasix with appropriate response and improvement in her hypoxia
- Titrate off of supplemental oxygen as able
- Currently assessing for home oxygen needs prior to discharge
Hyponatremia:
- Serum sodium stable at 133 on labs this morning, suspect was contributed to by adrenal insufficiency
- Discontinued IV fluids
- Continue prednisone 10 mg daily as outlined above
L3 compression fracture:
- Supportive care
- PT/OT
Transaminitis:
- Mild, resolved
Anemia:
- Normocytic, stable
- No overt evidence of bleeding
- Suspect there is a dilutional component here with the IV fluids she had received
- Will monitor
DVT prophylaxis: Lovenox
CODE STATUS: Full code
Anticipated Discharge: Within 24 hours
Subjective/Interval History
-
Date of Service: January 22, 2025
Patient was seen and examined at bedside this morning. Breathing more comfortably. Blood pressure stable. Still constipated
Objective Data
-
Labs:
Laboratory Results
01/22/25
04:46
WBC 12.3 H
Hgb 8.2 L
Hct 25.3 L
Plt Count 431 H
Sodium 133 L
Potassium 3.6
Chloride 98
Carbon Dioxide 31 H
BUN 11
Creatinine 0.4 L
Glucose 84
Calcium 8.2 L
Vital Signs:
Vital Signs
Temp Pulse Resp BP Pulse Ox
98.2 F 96 23 128/82 96
01/22/25 12:00 01/22/25 12:57 01/22/25 12:57 01/22/25 12:57 01/22/25 12:57
I&O
01/21/25 01/22/25 01/23/25
06:59 06:59 06:59
Intake Total 1200 / 1200
Output Total 900 / 900 1110 / 1110
Balance 300 / 300 -1110 / -1110
Review of Systems
-
History Source: Patient
All other systems: Reviewed and negative
Abdomen/GI: Reports Constipated
Physical Exam
-
General: No Apparent Distress
[2025-01-22] MEDS: LOVENOX 40 MG SC (17:45)
[2025-01-22] MEDS: LIDOCAINE 4% PATCH 1 PATCH TOPICAL (21:11)
[2025-01-23] VITALS (9 sets, daily range): BP systolic 118–142; BP diastolic 73–89; PULSE 86–111
[2025-01-23] MEDS: TYLENOL 650 MG PO ×2 (01:54→07:32)
[2025-01-23] MEDS: SYNTHROID 125 MCG PO (05:07)
[2025-01-23] MEDS: SENOKOT-S 1 TABLET PO (07:29)
[2025-01-23] MEDS: CYMBALTA DELAYED RELEASE 40 MG PO (07:30)
[2025-01-23] MEDS: DELTASONE 10 MG PO (07:30)
[2025-01-23] MEDS: PROTONIX IV 40 MG IV (07:30)
[2025-01-23] MEDS: NSS (PRESERVATIVE FREE) 10 ML IV (07:30)
[2025-01-23] MEDS: REMOVE LIDOCAINE PATCH 1 PATCH REMOVE (09:13)
--- NOTE | 2025-01-23 09:29 | CM ---
Patient requires O2 for discharge to home. Order and pertinent medical records faxed to [facility].
--- NOTE | 2025-01-23 11:50 | W.DCSUMMARY ---
Discharge Summary
Discharge Data
Date of Admission: 01/16/25
Date of Discharge: 01/23/25
Total time spent discharging patient (in min): 50
-
Pending Results: No
Hospital Course
Ms. 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
orthostatic hypotension, and vasovagal syncope who presented with fatigue and a syncopal episode 4 days prior to arrival during which she hurt her back. She had another syncopal episode just prior to arrival. She was hypotensive and hypoxic on
admission. She had an initial temperature of 100.4 �F. She had leukocytosis of 25,000 and hyponatremia with a serum sodium of 128. She also had a mild transaminitis with AST 48 and ALT 46 with alk phos of 303. CT brain showed no acute
abnormalities but did show mild Chiari I malformation. CT chest showed mild interstitial edema and small sub-6 mm solid pulmonary nodules. X-ray lumbar spine shows acute superior endplate compression fracture of L3 with minimal loss of height and
moderate bilateral facet joint arthrosis at L5/S1. She was started on IV fluids and broad-spectrum antibiotics and admitted for further evaluation and management of sepsis secondary to possible pneumonia.
She completed a 5-day course of antibiotics and was given aggressive IV fluids resuscitation. She has remained afebrile since a low-grade fever of 100.6 �F on the morning of 01/17/2025 and her cultures have remained negative. She was having
episodes of symptomatic orthostatic hypotension at which time it was suspected she was experiencing adrenal insufficiency considering she has been on prolonged courses of steroids previously and recently steroids were stopped abruptly, which
correlates with the onset of her symptoms. Her symptoms resolved and her blood pressure normalized with initiation of prednisone 10 mg daily. She had a low a.m. cortisol of 5 which was indeterminate, however she was given cosyntropin with adequate
response at 30 minutes. However I still feel there is some degree of adrenal insufficiency here and so she will be continued on prednisone at discharge. She will need to follow-up with her primary care physician and physical laboratory assistant for ongoing
management and titration as needed. She was still experiencing hypoxia and chest imaging showed some pulmonary edema which is likely due to the IV fluid she was given. Her hypoxia improved after gentle diuresis with IV Lasix. She required
supplemental oxygen at discharge which can be titrated by her primary care physician as needed. She was not bronchospastic. If she continues to be hypoxic she should follow-up with a stain dipper and could potentially pursue a cardiac evaluation
including an echocardiogram. She can also trial diuresis as needed in that case with caution to avoid hypotension. Her initial hyponatremia improved after starting steroids and should continue to be monitored. Her serum sodium just prior to
discharge was 133. She should continue supportive care for her back pain due to L3 compression fracture. Initially after admission we considered the possibility that her presentation is at least partially due to post chemoembolization syndrome.
Her primary oncologist, Dr. Lalo Joshi at [facility], was contacted and the case was discussed. Patient will need to continue close follow-up with her primary oncologist after discharge. She was medically stable at the time of possible discharge.
General: No Apparent Distress, Comfortable and Conversant
HEENT: NormoCephalic, Moist mucous membranes, Atraumatic
Respiratory: Clear and Non Labored Respirations
Cardiac: S1/S2 and Regular Rhythm; No Rub or Gallop
GI: Soft, Non Tender, Non Distended and Normal Bowel Sounds
Musculoskeletal: No Edema, no deformity
Skin: Warm and dry
: NO Colon
Neuro: Awake, Alert, Nonfocal/grossly intact
Psych: Calm and Intact Judgment/Insight
Discharge Plan
-
Patient Disposition: Home (Routine Discharge)
Discharge Diagnosis/Procedures: Sepsis secondary to pneumonia, acute hypoxic respiratory failure, orthostatic hypotension, adrenal insufficiency
Activity Restrictions/Additional Instructions:
You were admitted for treatment of dizziness and fatigue with episodes of passing out. You injured your back after a fall during 1 of these episodes and imaging showed that you had an L3 compression fracture in your spine. You are found to have
significant orthostatic hypotension likely due to adrenal insufficiency. Your symptoms dramatically improved with IV fluids and steroids. Your blood pressure is now well-controlled and you will be continued on daily steroids. You developed
hypoxia likely due to volume overload from the IV fluids you were given. You were given a dose of Lasix to help you urinate some of the extra fluid and you were started on supplemental oxygen via nasal cannula. You will be sent home with
supplemental oxygen to use as needed and you can be titrated off of the oxygen as able with guidance from your primary care physician. You should follow-up with a stain dipper as needed. Your primary care physician and physical laboratory assistant can help
titrate your steroid regimen as needed. You should continue taking acid suppressing medication while you are on steroids. If you do not continue to improve you can consider pursuing a cardiac evaluation including an echocardiogram. You should
continue pain medications as needed for the back pain you are experiencing from your L3 compression fracture. You should also follow-up closely with your oncology team for ongoing treatment.
Referrals:
Jesus Marroquin Jr., DO [Family Provider, Internal Medicine]
Prescriptions:
New
prednisone 10 mg Tablet
10 mg PO DAILY 30 Days Qty: 30 0RF
pantoprazole [Protonix] 40 mg tablet,delayed release (DR/EC)
40 mg PO DAILY 30 Days Qty: 30 0RF
Continued
acetaminophen 650 mg Tablet Extended Release
1,300 mg PO DAILYPRN PRN (Reason: mild pain)
levothyroxine 125 mcg tablet
125 mcg PO DAILY
allopurinol 300 mg tablet
300 mg PO DAILY
Rx Instructions:
take for 3 days before and 7 days after chemo
Systane Ultra 0.4-0.3 % Drops
1 drp OPHTHALMIC (EYE) DAILY PRN (Reason: dry eyes)
duloxetine 40 mg capsule,delayed release(DR/EC)
40 mg PO DAILY
[facility]
2 cap PO DAILY
Rx Instructions:
mushroom blend supplement
Discharge Orders:
Discharge Patient (As Directed); Ordered 01/23/25
Ordered By: Demetrius Vasquez
Discharge Date and Time
Print Language: KISWAHILI
--- NOTE | 2025-01-23 13:36 | CM ---
Patient has been medically cleared for discharge to home with Home O2 with [employer]. Patient declined HH services. Patient arranged for transport home.
== END 2025-01-23 13:39 | disposition home or self-care (01) | DRG 871 ==
LOC: IMU 18:11
PROVIDERS: Clinical Nurse Specialist Family Health; Nurse Practitioner; ADMITTING PHYSICIAN Hospitalist; ATTENDING PHYSICIAN Internal Medicine; EMERGENCY PHYSICIAN Emergency Medicine; FAMILY PHYSICIAN Family Medicine
DX: A41.9 Sepsis, unspecified organism (principal); G93.5 Compression of brain; J18.9 Pneumonia, unspecified organism; J96.01 Acute respiratory failure with hypoxia; J81.0 Acute pulmonary edema; R65.21 Severe sepsis with septic shock; S22.039A Unspecified fracture of third thoracic vertebra, initial encounter for closed fracture; S22.079A Unspecified fracture of T9-T10 vertebra, initial encounter for closed fracture; E27.40 Unspecified adrenocortical insufficiency; M48.56XA Collapsed vertebra, not elsewhere classified, lumbar region, initial encounter for fracture; E87.1 Hypo-osmolality and hyponatremia; C78.7 Secondary malignant neoplasm of liver and intrahepatic bile duct; J98.11 Atelectasis; I95.1 Orthostatic hypotension; W19.XXXA Unspecified fall, initial encounter; Z79.890 Hormone replacement therapy; C69.92 Malignant neoplasm of unspecified site of left eye; D50.9 Iron deficiency anemia, unspecified; Z85.05 Personal history of malignant neoplasm of liver; Z90.710 Acquired absence of both cervix and uterus
CPT/HCPCS: 70450; 71045; 71046; 71275; 72110; 80048; 80053; 81003; 81015; 82248; 82533; 83605; 83880; 85025; 87040; 87502; 87641; 87811; 93005; 96365; 96366; 96375; 97116; 97163; 97166; 97530; 99285; Q9967

== ENCOUNTER → 2025-03-07 13:44 | Outpatient (REF) | payer OTHER, SELFPAY | LOC: RAD 13:44 | PROVIDERS: FAMILY PHYSICIAN Family Medicine | DX: C78.7 Secondary malignant neoplasm of liver and intrahepatic bile duct (principal) | CPT/HCPCS: 71250; 72192; 74170; Q9967 ==

== ENCOUNTER → 2025-04-13 12:54 | Outpatient (REF) | payer OTHER, SELFPAY | LOC: PAVMRI 12:54 | PROVIDERS: ATTENDING PHYSICIAN Internal Medicine Hematology & Oncology; FAMILY PHYSICIAN Family Medicine | DX: C78.7 Secondary malignant neoplasm of liver and intrahepatic bile duct (principal) | CPT/HCPCS: 74183; A9581 ==